=== PATIENT | female | born 1995 | race Caucasian/White ===

== ENCOUNTER 2023-03-28 09:44 | Emergency (ER) | payer OTHER, SELFPAY ==
[2023-03-28 09:48] VITALS: BP 148/76; PULSE 94; RESP 18; TEMP 36.4; O2SAT 100; BMI 30.5
--- NOTE | 2023-03-28 10:00 | XR_ITS ---
The [address] [address] Patient Name: LENY KEN MRN: [id number] date: 1995 Sex: F Assigned Patient Location: ER Current Patient Location: ER Accession/Order Number: [id number] Exam Date: 03/28/2023 10:10 Report Date: 03/28/2023 10:51 At the request of: JULES MARY Procedure: XR knee LT 4V EXAM: XR knee LT 4V - 03/28/2023. HISTORY: fall, left knee pain COMPARISON: None. FINDINGS: AP, lateral, oblique and sunrise diffuse for 4 views obtained. XR/XR knee LT 4V IMPRESSION: 1. No acute fracture or dislocation. 2. Small volume of joint fluid suspected within the suprapatellar bursa. There may be mild narrowing of the medial joint compartment. There is no chondrocalcinosis or radiopaque foreign body. 3. Mild hypertrophic osseous change at the anterior tibial tubercle at insertion site of the infrapatellar ligament related to remote trauma versus developmental variant. Electronically authenticated by: SONNY WEBB Date: 03/28/2023 10:51
--- NOTE | 2023-03-28 10:00 | ED_ITS ---
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 She leaned forward to try and catch it and landed onto the floor on bent knees, with the knees striking the tiled floor. This occurred yesterday. Since then she has experienced pain and a popping sensation with movement of the left knee. No prior knee injury or procedures/surgeries. She took OTC pain meds at home. Related Data Home Medications Medication Instructions Recorded Confirmed dextroamphetamine-amphetamine 20 20 mg PO TID 03/28/23 03/28/23 mg tablet insulin glargine 100 unit/mL 27 unit subcut DAILY 03/28/23 03/28/23 subcutaneous solution norethindrone 1 mg-ethinyl 1 tab PO DAILY 03/28/23 03/28/23 estradiol 20 mcg (21)-iron 75 mg (7) tablet Allergies Allergy/AdvReac Type Severity Reaction Status Date / Time No Known Drug Allergies Allergy Verified 03/28/23 09:48 PFSH [facility] Social History Smoking status: Never smoker Exam Narrative Exam Narrative: Nurses notes and vital signs reviewed and patient is not hypoxic. afebrile General: Well-appearing and in no apparent distress. Skin: Warm, dry, no pallor noted. No rash. Cardiovascular: Normal peripheral perfusion. Respiratory: No accessory muscle use or respiratory distress. Musculoskeletal: No evidence of deformity to the R & L knee. The patient has tenderness to the inferior patellar aspect of the left knee and some pain with patellar manipulation. Palpable click with passive and active left knee move ment. There is no left knee swelling, no ecchymosis, no erythema or warmth noted. DP and PT pulses are intact 2+. Normal sensation, no cyanosis or mottling noted. The patient has no laxity with varus or valgus stressing. The patient has negative anterior drawer and Rachel testing. The patient was able to flex and extend the left knee. Patient was able to extend leg off the cart without difficulty. No tenderness noted to the proximal fibular area. The achilles tendon is intact. The patient has no shortening or rotation noted to the bilateral lower extremities. Neurological: alert and orient x4, normal sensory and motor observed. Psychiatric: Cooperative Constitutional Vital Signs, click to edit/add: Last Vital Signs Temp 97.6 F 03/28/23 09:48 Pulse 94 H 03/28/23 09:48 Resp 18 03/28/23 09:48 BP 148/76 H 03/28/23 09:48 Pulse Ox 100 03/28/23 09:48 O2 Del Method Room Air 03/28/23 09:48 Course Vital Signs Vital signs: Vital Signs Temperature 97.6 F 03/28/23 09:48 Pulse Rate 94 H 03/28/23 09:48 Respiratory Rate 18 03/28/23 09:48 Blood Pressure 148/76 H 03/28/23 09:48 Pulse Oximetry 100 03/28/23 09:48 Oxygen Delivery Method Room Air 03/28/23 09:48 Temperature 97.6 F 03/28/23 09:48 Pulse Rate 94 H 03/28/23 09:48 Respiratory Rate 18 03/28/23 09:48 Blood Pressure 148/76 H 03/28/23 09:48 Pulse Oximetry 100 03/28/23 09:48 Oxygen Delivery Method Room Air 03/28/23 09:48 MDM - Extremity Injury (Lower) MDM Narrative Medical decision making narrative: xrays L knee = no fracture or dislocation, small amount of suprapatellar bursal fluid. Patient and I discussed her xrays and what might be causing the click in the knee. This is work related so she will start with occupational health for follow up. They can decide on any additional referrals necessary if her symptoms persist. Recommended OTC meds for pain. Imaging Data xr knee: Radiologist's impression: XR/XR knee LT 4V IMPRESSION: 1. No acute fracture or dislocation. 2. Small volume of joint fluid suspected within the suprapatellar bursa. There may be mild narrowing of the medial joint compartment. There is no chondrocalcinosis or radiopaque foreign body. 3. Mild hypertrophic osseous change at the anterior tibial tubercle at insertion site of the infrapatellar ligament related to remote trauma versus developmental variant. Electronically authenticated by: SONNY WEBB Date: 03/28/2023 10:39 Dictated By: Jude Price M.D. Discharge Plan Discharge Chief Complaint: Extremity Injury, Lower Clinical Impression: Acute pain of left knee Patient Disposition: Home, Self-Care Time of Disposition Decision: 10:46 Prescriptions / Home Meds: No Action dextroamphetamine-amphetamine 20 mg tablet 20 mg PO TID insulin glargine 100 unit/mL solution 27 unit SUBCUT DAILY norethindrone-e.estradiol-iron 1 mg-20 mcg (21)/75 mg (7) tablet 1 tab PO DAILY Instructions: Knee Pain (ED) Stand Alone Forms: Portal Instructions Referrals: [facility] - As soon as possible Discharge Date/Time: 03/28/23 11:08
[2023-03-28 11:05] VITALS: PULSE 78; RESP 16; O2SAT 98
== END 2023-03-28 11:08 | disposition home or self-care (01) ==
PROVIDERS: Emergency Provider Emergency Medicine
DX: S80.02XA Contusion of left knee, initial encounter (principal); M25.562 Pain in left knee; W18.39XA Other fall on same level, initial encounter
CPT/HCPCS: 73564; 99283

== ENCOUNTER 2023-07-24 06:46 | Outpatient (OUT) | payer SELFPAY ==
--- OUTSIDE RECORDS SUMMARY | 2023-07-24 06:49 | XMS_ITS | CCD ---
Author Name Unknown Address [address] [place] [address] Organization [facility] Care Team Providers Care Printing Sign 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 Name Role Phone Stevie SWIFT, Perri Primary Care Provider [phone] MILAGROS LOCKE Admitting Unavailable MILAGROS LOCKE Attending Unavailable [facility], DR GRIGSBY Primary Care Unavailable RICK ., DIANNE BENNETT Consulting Unavailabl e Stevie SWIFT, [facility] Primary Care Provider STEVIE, PERRI Attending Unavailable STEVIE, PERRI Primary Care Unavailable IVAN FERRERA Attending Unavailable STEVIE, PERRI Referring Unavailable STEVIE, PERRI Primary Care Unavailable STEVIE, PERRI Referring Unavailable STEVIE, PERRI Primary Care Unavailable STEVIE, PERRI Attending Unavailable STEVIE, PERRI Primary Care Unavailable STEVIE, PERRI Attending Unavailable STEVIE, PERRI Primary Care Unavailable STEVIE, PERRI Attending Unavailable STEVIE, PERRI Primary Care Unavailable SHERRY CEBALLOS Attending Unavailable STEVIE, PERRI Primary Care Unavailable STEVIE, PERRI Referring Unavailable STEVIE, PERRI Primary Care Unavailable STEVIE, PERRI Referring Unavailable STEVIE, PERRI Primary Care Unavailable STEVIE, PERRI Attending Unavailable STEVIE, PERRI Primary Care Unavailable Medications Current Medications Medication Drug Class(es) Dates Sig (Normalized) Sig (Original) amphetamine aspartate 5 mg / amphetamine sulfate 5 mg / dextroamphetamine saccharate 5 mg / dextroamphetamine sulfate 5 mg oral tablet (20 sources) Central Nervous System Stimulant Start: 02-20-2023 End: 08-19-2023 dextroamphetamine-a mphetamine (ADDERALL) 20 mg tablet Indications: Attention deficit hyperactivity disorder (ADHD), combined type Take 1 tablet by mouth three times a day for 30 days. Do not start before July 20, 2023. 90 tablet 0 07/20/2023 08/19/2023 Active Start: 08-21-2022 End: 01-02-2023 take 1.5 tablets by mouth three times daily dextroamphetamine-amphetamine (ADDERALL) 20 mg tablet Indications: Attention deficit hyperactivity disorder (ADHD), combined type Take 1.5 tablets by mouth three times daily for 30 days. Do not start before December 03, 2022. 135 tablet 0 12/03/2022 Active Start: 06-10-2022 End: 10-20-2022 take 1 tablet by mouth three times daily dextroamphetamine-amphetamine (ADDERALL) 20 mg tablet Indications: Attention deficit hyperactivity disorder (ADHD), combined type Take 1 tablet by mouth three times daily for 30 days. 90 tablet 0 07/22/2022 Active Start: 12-24-2021 End: 07-10-2022 take 1 tablet by mouth in the morning dextroamphetamine-amphetamine (ADDERALL) 20 mg tablet Indications: Attention deficit hyperactivity disorder (ADHD), combined type Take 1 1/2 tablets by mouth in the morning; take 1 tablet by mouth in the afternoon. 75 tablet 0 06/10/2022 Active Start: 09-23-2021 End: 12-24-2021 dextroamphetamine-amphetamin e (ADDERALL) 10 mg tablet Indications: Attention deficit hyperactivity disorder (ADHD), combined type Take 1 tablet by mouth once daily for 30 days. Do not start before November 23, 2021. 30 tablet 0 11/23/2021 12/24/2021 Discontinued Start: 09-23-2021 End: 07-05-2022 take 1 tablet by mouth once daily Amphetamine-Dextroamphetamine (ADDERALL) 30 mg tablet Indications: Attention deficit hyperactivity disorder (ADHD), combined type Take 1 tablet by mouth once daily for 30 days. 30 tablet 0 04/01/2022 Active Start: 09-10-2021 End: 09-23-2021 take 1 tablet by mouth twice daily dextroamphetamine-amphetamine (ADDERALL) 10 mg tablet Indications: Attention deficit hyperactivity disorder (ADHD), combined type Take 1 tablet by mouth twice daily for 14 days. 28 tablet 0 09/10/2021 09/23/2021 Discontinued Comment on above: Take 1 tablet by donn th once daily for 30 days. Take 1 tablet by donn th twice daily for 14 days. Take 1 tablet by donn th once daily for 30 days. Do not start before November 23, 2021. Take 1 tablet by donn th once daily for 30 days. Do not start before February 22, 2022. Take 1 tablet by donn th once daily for 30 days. Do not start before January 23, 2022. Take 1 tablet by donn th once daily for 30 days. Do not start before May 31, 2022. Take 1 tablet by donn th once daily for 30 days. Do not start before May 01, 2022. Take 1 1/2 tablets b y mouth in the morning; take 1 tablet by mouth in the afternoon. Take 1 tablet by donn th three times daily for 30 days. Do not start before September 20, 2022. Take 1.5 tablets by mouth three times daily for 30 days. Do not start before August 21, 2022. Take 1 tablet by donn th three times daily for 30 days. Take 1.5 tablets by mouth three times daily for 30 days. Do not start before December 03, 2022. Take 1 tablet by donn th three times a day for 30 days. Do not start before March 22, 2023. Take 1 tablet by donn th three times a day for 30 days. Do not start before April 21, 2023. Take 1 tablet by donn th three times a day for 30 days. Take 1 tablet by donn th three times a day for 30 days. Do not start before July 20, 2023. Take 1 tablet by donn th three times a day for 30 days. Do not start before June 20, 2023. levoFLOXacin 500 mg oral tablet (2 sources) Quinolone Antimicrobial Start: 07-25-19 End: 08-01-19 take 1 tablet by mouth once daily levoFLOXacin (LEVAQUIN) 500 mg tablet Indications: Perforation of right tympanic membrane Take 1 tablet by mouth once daily for 7 days. 7 tablet 0 07/24/2022 07/31/2022 Active Comment on above: Take 1 tablet by donn th once daily for 7 days. Completed/Discontinued Medications Medication Drug Class(es) Dates Sig (Normalized) Sig (Original) atorvastatin 20 mg oral tablet (19 sources) HMG-CoA Reductase Inhibitor Start: 08-06-2015 take 1 tablet by mouth once daily at bedtime atorvastatin (LIPITOR) 20 mg tablet Take 1 tablet by mouth daily at bedtime. 30 tablet 5 08/06/2015 Active Comment on above: Take 1 tablet by donn th daily at bedtime. Ethinyl Estradiol / Ferrous fumarate / Norethindrone (19 sources) Estrogen Start: 08-26-2018 take 1 tablet by mouth once Norethin Skinny-Eth Estrad-FE 1 mg-20 mcg (21)/75 mg (7) per tablet Take 1 tablet by mouth as directed. 0 08/26/2018 Active Comment on above: Take 1 tablet by donn th as directed. glucagon (rdna) 1 mg injection (19 sources) Antihypoglycemic Agent Start: 09-14-2014 glucagon, human recombinant, (GLUCAGON EMERGENCY KIT, HUMAN,) 1 mg injection Inject 1 mg intramuscularly as directed. For severe hypoglycemia 1 Each 1 09/14/2014 Active Comment on above: Inject 1 mg intramus cularly as directed. For severe hypoglycemia insulin glargine 100 unt/ml injectable solution (20 sources) Insulin Analog Start: 05-21-2023 insulin glargine (LANTUS U-100 INSULIN) 100 unit/mL injection Inject 27 units QHS and as directed 10 mL 3 05/21/2023 Active Start: 04-05-2015 End: 01-12-2023 insulin glargine (LANTUS U-1 00 INSULIN) 100 unit/mL injection Inject 27 units QHS and as directed 10 mL 3 01/12/2023 Active Comment on above: Inject 27 units QHS and as directed 3 ml insulin lispro 100 unt/ml pen injector (20 sources) Insulin Analog Start: 05-21-2023 insulin lispro (HUMALOG KWIKPEN INSULIN) 100 unit/mL Indications: Uncontrolled type 2 diabetes mellitus with hyperglycemia (HCC) INJECT 1 UNIT PER 7 GRAMS OF CARBOHYDRATE, UP TO 40 UNITS DAILY 45 mL 3 05/21/2023 Active Start: 04-11-2016 End: 01-12-2023 insulin lispro (HUMALOG KWIK PEN INSULIN) 100 unit/mL INJECT 1 UNIT PER 7 GRAMS OF CARBOHYDRATE, UP TO 40 UNITS DAILY 45 mL 3 01/12/2023 Active Comment on above: INJECT 1 UNIT PER 7 GRAMS OF CARBOHYDRATE, UP TO 40 UNITS DAILY insulin needles, DISPOSABLE, (BD INSULIN PEN NEEDLE UF) 31 X 5/16 ndle (19 sources) Start: 09-14-2014 insulin needles, DISPOSABLE, (BD INSULIN PEN NEEDLE UF) 31 X 5/16 ndle Injects 4 times per day 400 Each 4 09/14/2014 Active Comment on above: Injects 4 times per day Insulin Syringe-Needle U-100 1/2 mL 29 syrg (19 sources) Start: 04-05-2015 Insulin Syringe-Needle U-100 1/2 mL 29 syrg Injects once per day. 100 Syringe 2 04/05/2015 Active Comment on above: Injects once per day . Problems Active Problems Problem Classification Problem Date Documented Date Episodic/Chronic Attention-deficit, conduct, and disruptive behavior disorders (20 sources) Attention deficit hyperactivity disorder, combined type; Translations: [Attention-deficit hyperactivity disorder, combined type] Onset: 09-24-2021 Chronic Attention-deficit, conduct, and disruptive behavior disorders (1 source) Attention-deficit hyperactivity disorder, combined type; Translations: [Attention deficit hyperactivity disorder (ADHD), combined type] Onset: 09-24-2021 Chronic Coagulation and hemorrhagic disorders (14 sources) von Willebrand disorder; Translations: [Von Willebrand's disease] Onset: 04-29-2021 04-29-2021 Chronic Diabetes mellitus with complications (20 sources) Type 1 diabetes mellitus; Translations: [Type 1 diabetes mellitus, uncontrolled] Onset: 03-05-2006 09-13-2015 Chronic Disorders of lipid metabolism (20 sources) Mixed hyperlipidemia; Translations: [Mixed hyperlipidemia] Onset: 04-29-2021 04-29-2021 Chronic E Codes: Cut/pierceb (1 source) Contact with other sharp object(s), not elsewhere classified, initial encounter; Translations: [[facility] SH[facility] OB NOT ELSW CLASS INI] Onset: 07-31-2022 Episodic Immunizations and screening for infectious disease (1 source) Viral screening status; Translations: [Encounter for screening for other viral diseases] Episodic Menstrual disorders (19 sources) Dysmenorrhea; Translations: [Dysmenorrhea, unspecified] Onset: 04-29-2021 04-29-2021 Chronic Neoplasms of unspecified nature or uncertain behavior (1 source) Thrombocytosis; Translations: [Thrombocytosis] Episodic Nutritional deficiencies (20 sources) Vitamin D deficiency; Translations: [Vitamin D deficiency, unspecified] Onset: 12-04-2011 12-04-2011 Chronic Open wounds of extremities (1 source) Laceration of left index finger; Translations: [Laceration without foreign body of left index finger without damage to nail, initial encounter] 07-16-2023 Episodic Open wounds of head; neck; and trunk (4 sources) Traumatic rupture of right ear drum, initial encounter; Translations: [TRAUMATIC RUPTURE RT EAR DRUM INIT] Onset: 07-29-2022 Episodic Other aftercare (2 sources) Patient encounter status; Translations: [Other care home (current) drug therapy] Episodic Other nervous system disorders (1 source) Carpal tunnel syndrome; Translations: [Carpal tunnel syndrome, bilateral upper limbs] Chronic Other nervous system disorders (1 source) Bilateral carpal tunnel syndrome; Translations: [Carpal tunnel syndrome, bilateral upper limbs] Chronic Other nervous system disorders (1 source) Carpal tunnel syndrome, bilateral upper limbs; Translations: [Bilateral carpal tunnel syndrome] Onset: 05-21-2023 Chronic Other nervous system disorders (2 sources) Paresthesia of upper limb; Translations: [Anesthesia of skin] Episodic Other nervous system disorders (1 source) Skin sensation disturbance; Translations: [Other disturbances of skin sensation] Episodic Otitis media and related conditions (1 source) Perforation of right tympanic membrane; Translations: [Unspecified perforation of tympanic membrane, right ear] Episodic Past or Other Problems Problem Classification Problem Date Documented Da te Episodic/Chronic Diabetes mellitus without complication (19 sources) Hyperglycemia; Translations: [Hyperglycemia, unspecified] Onset: 01-29-2012 Episodic Results Test Name Value Interpretation Reference Range Facility [facility] 07-16-2023 CNOV Office Visit (EXPLOR ) LENY KEN ([id number]) 1995 F Date Time Provider Department 07/16/23 2:05 PM SHERRY CEBALLOS During your visit today, we recorded the following information about you: Temperature Pulse Respiration Blood pressure 97.9 degrees 91/minute 16/minute 125/84 Sherry Ceballos APRN.CLINICAL SUPERVISOR 07/16/2023 2:37 PM Signed This note was created using NoteWriter. Subjective Leny Ken is a 27 year old female. This 27 year old female presents to [facility] with flap cut, superficial to left index finger x 3 days, needs tetanus, started [employer] clain at work but has not been seen, pt is DM I. Pt is in NAD. Last tetanus 09/07/2015. The history is provided by the patient. Review of Systems Constitutional: Negative for activity change, appetite change, chills, diaphoresis, fatigue and fever. Respiratory: Negative for shortness of breath. Cardiovascular: Negative for chest pain. Gastrointestinal: Negative for abdominal pain, diarrhea, nausea and vomiting. Musculoskeletal: Negative for arthralgias, myalgias, neck pain and neck stiffness. Skin: Positive for wound. Left index finger, superficial flap cut, on chuck metal shelving, x 3 days ago Allergic/Immunologic: Positive for immunocompromised state. DM I Hematological: Does not bruise/bleed easily. Psychiatric/Behavioral : Negative. Objective BP 125/84 (BP Site: Right Arm, BP Position: Sitting, BP Cuff Size: Large Adult) Pulse 91 Temp 36.6 ?C (97.9 ?F) (Oral) Resp 16 LMP 08/05/2017 (Within Weeks) SpO2 100% PAST MEDICAL HISTORY Diagnosis Date Diabetes mellitus without mention of complication diagnosed 11/2005 Dysmenorrhea Eating disorder 02/25/2018 Binge eating Mixed hyperlipidemia Von Willebrand's disease (HCC) Current Outpatient Medications on File Prior to Visit Medication Sig dextroamphetamine-amph etamine (ADDERALL) 20 mg tablet Take 1 tablet by mouth three times a day for 30 days. [START ON 07/20/2023] dextroamphetamine-amph etamine (ADDERALL) 20 mg tablet Take 1 tablet by mouth three times a day for 30 days. Do not start before July 20, 2023. dextroamphetamine-amph etamine (ADDERALL) 20 mg tablet Take 1 tablet by mouth three times a day for 30 days. Do not start before June 20, 2023. insulin lispro (HUMALOG KWIKPEN INSULIN) 100 unit/mL INJECT 1 UNIT PER 7 GRAMS OF CARBOHYDRATE, UP TO 40 UNITS DAILY insulin glargine (LANTUS U-100 INSULIN) 100 unit/mL injection Inject 27 units QHS and as directed Norethin Skinny-Eth Estrad-FE 1 mg-20 mcg (21)/75 mg (7) per tablet Take 1 tablet by mouth as directed. atorvastatin (LIPITOR) 20 mg tablet Take 1 tablet by mouth daily at bedtime. Insulin Syringe-Needle U-100 1/2 mL 29 syrg Injects once per day. insulin needles, DISPOSABLE, (BD INSULIN PEN NEEDLE UF) 31 X 5/16 ndle Injects 4 times per day glucagon, human recombinant, (GLUCAGON EMERGENCY KIT, HUMAN,) 1 mg injection Inject 1 mg intramuscularly as directed. For severe hypoglycemia blood sugar diagnostic ([employer] ULTRA TEST) test strip Use as instructed. Tests 4 times per day No current facility-administered medications on file prior to visit. Physical Exam Vitals and nursing note reviewed. Constitutional: General: She is not in acute distress. Appearance: Normal appearance. She is not ill-appearing, toxic-appearing or diaphoretic. HENT: Head: Normocephalic and atraumatic. Cardiovascular: Rate and Rhythm: Normal rate. Pulmonary: Effort: Pulmonary effort is normal. Abdominal: Palpations: Abdomen is soft. Musculoskeletal: General: Normal range of motion. Skin: General: Skin is warm. Capillary Refill: Capillary refill takes less than 2 seconds. Findings: No erythema. Comments: Left index finger flap laceration, clean, no appreciated infection, no bleeding or discharge, minimal swelling Neurological: Mental Status: She is alert and oriented to person, place, and time. Psychiatric: Mood and Affect: Mood normal. Behavior: Behavior normal. ASSESSMENT/PLAN: 1. Laceration of index finger of left hand without complication, initial encounter - ICD9: 883.0, ICD10: S61.211A Tdap updated- 8 years out, chuck shelf is mechanism of injury Wash with dial Cover when out and open when home Follow up with [facility] provider as needed or to close case - TDAP VACCINE, AGE 7+ YR (ADACEL, BOOSTRIX) SUZE Pleitez Margaret H, APRN.CNP 07/16/2023 2:37 PM Signed ASSESSMENT/PLAN: 1. Laceration of index finger of left hand without complication, initial encounter - ICD9: 883.0, ICD10: S61.211A Tdap updated- 8 years out, chuck shelf is mechanism of injury Wash with dial Cover when out and open when home Follow up with [facility] provider as needed or to close case - TDAP VACCINE, AGE 7+ YR (ADACEL, BOOSTRIX) Sherry Ceballos, TIM.CLINICAL SUPERVISOR Allergies As of Date: 02 (more content not included)... Normal [facility] ALBUMIN/CREAT RATIO RND URon 05-21-2023 Albumin DL <= 20 mg/L (U) [Mass/Vol] mg/dL Normal 0.0-20.0 [facility] Comment on above: Order Comment: Speci men Type: URINE SPECIMENOrdering Facility: [facility] Address: [address] [place] [address] Performed By: #### U ACR ####[facility] LABIA [id number] [address] [place] Albumin/Creatinine (U) [Mass ratio] Normal [facility] Comment on above: Order Comment: Speci men Type: URINE SPECIMENOrdering Facility: [facility] Address: [address] [place] [address] Result Comment: Not calculated Adult Male and Female Nephrotic Criteria: <30 mg/g is considered normal to mildly increased 30-300 mg/g is considered moderately increased >300 mg/g is considered severely increased KDIGO. (2013). KDIGO 2012 Clinical Practice Guideline for the Evaluation and Management of Chronic Kidney Disease. Official Journal of the International Society of Nephrology, 3(1), 1-150. Performed By: #### U ACR ####[facility] LABIA [id number] [place] [id number] [place] Creatinine (U) [Mass/Vol] 14.0 mg/dL Low 20.0-300.0 [facility] Comment on above: Order Comment: Speci men Type: URINE SPECIMENOrdering Facility: [facility] Address: [address] [place] [address] Performed By: #### U ACR ####[facility] LABIA [id number] [place] [id number] [facility] [place] CNOVon 05-21-2023 CNOV Office Visit [facility] LENY KEN ([id number]) 1995 F Date Time Provider Department 05/21/23 1:00 PM PERRI KRAUS [facility] During your visit today, we recorded the following information about you: Pulse Respiration Blood pressure Weight 111/minute 20/minute 129/85 70.2 kg Height 1.626 m Perri Kraus MD 05/22/2023 7:39 AM Signed Subjective HPI Patient here for follow-up, complaining of persistent discomfort in her wrists as well as into her hands bilaterally. Had an EMG done that showed positive, moderate carpal tunnel bilaterally. Has not had lab to exclude secondary causes. Will do that now she is of course diabetic, type I, control has been quite good over the last few months. If the labs are unremarkable we will probably recommend she go see orthopedics Additionally attention deficit, well-controlled without any major issues or problems, compliant with regimen of care. Review of Systems Respiratory: Negative for cough, hemoptysis and sputum production. Cardiovascular: Negative for chest pain, palpitations and orthopnea. Objective Physical Exam Cardiovascular: Rate and Rhythm: Normal rate and regular rhythm. Pulses: Normal pulses. Heart sounds: Normal heart sounds. Pulmonary: Effort: Pulmonary effort is normal. Breath sounds: Normal breath sounds. ASSESSMENT/PLAN: 1. Attention deficit hyperactivity disorder (ADHD), combined type - ICD9: 314.01, ICD10: F90.2 (primary diagnosis) - DEXTROAMPHETAMINE-AMPH ETAMINE 20 MG TABLET - DEXTROAMPHETAMINE-AMPH ETAMINE 20 MG TABLET - DEXTROAMPHETAMINE-AMPH ETAMINE 20 MG TABLET 2. Bilateral carpal tunnel syndrome - ICD9: 354.0, ICD10: G56.03 - CELINA BLOOD - C-REACTIVE PROTEIN (CRP) - FOLATE SERUM - RHEUMATOID FACTOR BL - VITAMIN B12 BLOOD - TSH BLD - SED RATE WESTERGREN - XR HAND 2V PA/LAT BILATERAL 3. Uncontrolled type 2 diabetes mellitus with hyperglycemia (HCC) - ICD9: 250.02, ICD10: E11.65 - ALBUMIN/CREAT RATIO RND UR - HGB A1C - INSULIN LISPRO (U-100) 100 UNIT/ML SUBCUTANEOUS PEN MD Stevie Skaggs Rajendran, MD 05/22/2023 7:45 AM Signed Addended by: PERRI KRAUS on: 05/22/2023 07:45 AM Modules accepted: Orders Referring Provider: SELF [200] Allergies As of Date: 05/21/2023 (No Known Allergies) Date Reviewed: 05/21/2023 Reviewed by: Kiki Rodrigez MA - Fully Assessed Reason for Visit: F/U 3 Month [443] Carpal Tunnel [972] Primary Visit Diagnosis:Attention deficit hyperactivity disorder (ADHD), combined type [F90.2] Other Visit Diagnoses:Bilateral carpal tunnel syndrome [G56.03] Uncontrolled type 2 diabetes mellitus with hyperglycemia (HCC) [E11.65] Order(s):dextroampheta mine-amphetamine (ADDERALL) 20 mg tabletTake 1 tablet by mouth three times a day for 30 days.Disp: 90 tabletRfl: 0 [START ON 07/20/2023] dextroamphetamine-amph etamine (ADDERALL) 20 mg tabletTake 1 tablet by mouth three times a day for 30 days. Do not start before July 20, 2023.Disp: 90 tabletRfl: 0 [START ON 06/20/2023] dextroamphetamine-amph etamine (ADDERALL) 20 mg tabletTake 1 tablet by mouth three times a day for 30 days. Do not start before June 20, 2023.Disp: 90 tabletRfl: 0 ALBUMIN/CREAT RATIO RND UR [SQUACR] Order #: [id number] FUTURE HGB A1C [ATDBS0J] Order #: [id number] FUTURE insulin lispro (HUMALOG KWIKPEN INSULIN) 100 unit/mLINJECT 1 UNIT PER 7 GRAMS OF CARBOHYDRATE, UP TO 40 UNITS DAILYDisp: 45 mLRfl: 3 insulin glargine (LANTUS U-100 INSULIN) 100 unit/mL injectionInject 27 units QHS and as directedDisp: 10 mLRfl: 3 CELINA BLOOD [SQANAS] Order #: [id number] FUTURE C-REACTIVE PROTEIN (CRP) [SQCRP] Order #: [id number] FUTURE FOLATE SERUM [SQSERFOL] Order #: [id number] FUTURE RHEUMATOID FACTOR BL [SQRF] Order #: [id number] FUTURE VITAMIN B12 BLOOD [SQB12] Order #: [id number] FUTURE TSH BLD [SQTSH] Order #: [id number] FUTURE SED RATE WESTERGREN [SQWSR] Order #: [id number] FUTURE XR HAND 2V PA/LAT BILATERAL [1305274] Order #: [id number] FUTURE XR WRIST GENERAL 3V PA/LAT/OBL BILATERAL [3607676] Order #: [id number] FUTURE CONSULT PANEL TO ORTHOPAEDICS [606637] Order #: [id number]: 1 FUTURE Prescriptions as of 05/22/2023 - dextroamphetamine-amph etamine (ADDERALL) 20 mg tablet Take 1 tablet by mouth three times a day for 30 days. - dextroamphetamine-amph etamine (ADDERALL) 20 mg tablet Take 1 tablet by mouth three times a day for 30 days. Do not start before July 20, 2023. - dextroamphetamine-amph etamine (ADDERALL) 20 mg tablet Take 1 tablet by mouth three times a day for 30 days. Do not start before June 20, 2023. - insulin lispro (HUMALOG KWIKPEN INSULIN) 100 unit/mL INJECT 1 UNIT PER 7 GRAMS OF CARBOHYDRATE, UP TO 40 UNITS DAILY - insulin glargine (LANTUS U-100 INSULIN) 100 unit/mL injection Inject 27 units QHS and as directed - Norethin Skinny-Eth Estrad-FE 1 mg-20 mcg (21)/75 (more content not included)... Normal [facility] CRP SerPl-mCncon 05-21-2023 CRP [Mass/Vol] 0.2 mg/dL Normal <0.9 [facility] Comment on above: Order Comment: Speci men Type: BLOOD SPECIMENOrdering Facility: [facility] Address: [address] [place] [address] Performed By: #### 1 [id number] ####[facility] LABCLIA [id number] [place] [address] [place] ESR Westergren method (Bld) [Velocity]on 05-21-2023 ESR (Bld) [Velocity] 2 mm/h Normal 0-20 [facility] Comment on above: Order Comment: Speci men Type: BLOOD SPECIMENOrdering Facility: [facility] Address: [address] [place] [address] Performed By: #### 4 [id number] ####[facility] LABCLIA [id number] [place] [address] [place] Folate SerPl-mCncon 05-21-19 24 Folate [Mass/Vol] ng/mL Normal >4.7 [facility] Comment on above: Order Comment: Speci men Type: BLOOD SPECIMENOrdering Facility: [facility] Address: [address] [place] [address] Result Comment: A re sult of > 20 ng/mL is not necessarily indicative of a pathologic or treatable condition: it reflects a limitation of the test methodology. Assay reference range: 4.8 to 24.2 ng/mL. Suitable for detection of folate deficiency. Reference: Folate III (Folate III) [package insert V 1.0 Estonian]. [facility], [place], [place]: March 2015. Performed By: #### 2 132-9, 3016-3, 2284-8, 59394-1 ####[facility] LABCLIA [id number] [place] [address] [place] HbA1c (Bld)on 05-21-2023 Average glucose Estimated from glycated hemoglobin (Bld) [Mass/Vol] 163 mg/dL Normal [facility] Comment on above: Order Comment: Speci men Type: BLOOD SPECIMENOrdering Facility: [facility] Address: [address] [place] [address] Result Comment: eAG: (Estimated average glucose) is a calculated value from HgbA1c and is sales representative metals of the average blood glucose level in the last 2-3 month period. Performed By: #### 5 5454-3 ####[facility] LABCLIA [id number] [place] [address] [place] HbA1c (Bld) [Mass fraction] 7.3 % High 4.3-5.6 [facility] Comment on above: Order Comment: Israel harley Type: BLOOD SPECIMENOrdering Facility: [facility] Address: [address] [place] [address] Result Comment: Amer ican Diabetes Association guidelines indicate that patients with HgbA1c in the range 5.7-6.4% are at increased risk for development of diabetes, and intervention by lifestyle modification may be beneficial. HgbA1c greater or equal to 6.5% is considered diagnostic of diabetes. Performed By: #### 5 5454-3 ####[facility] LABCLIA [id number] [place] [id number] [place] Nuclear Ab IA Ql (S)on 05-21 CELINA SCR QUAL Negative Normal Negative [facility] Comment on above: Order Comment: Israel harley Type: BLOOD SPECIMENOrdering Facility: [facility] Address: [address] [place] [address] Result Comment: The qualitative antinuclear antibody screen test performed using the following antigens: dsDNA, Chromatin, Ribosomal P, SS-A 60, SS-A 52, SS-B, Sm, SmRNP, NUTRITIONAL SERVICES DIRECTOR A, NUTRITIONAL SERVICES DIRECTOR 68, Scl-70, Norma-1, and Centromere B. Methodology: Multiplex flow immunoassay. Performed By: #### 4 7383-5 ####[facility] LABIA [id number] [place] [address] [place] Rheumatoid fact SerPl-aCncon 05-21-2023 Rheumatoid factor Qn [IU]/mL Normal <16 [facility] Comment on above: Order Comment: Israel cricket Type: BLOOD SPECIMENOrdering Facility: [facility] Address: [address] [place] [address] Performed By: #### 2 132-9, 3016-3, 2284-8, 08540-9 ####[facility] LABIA [id number] [place] [address] [place] TSH SerPl-aCncon 05-21-2023 TSH Qn 0.987 m[IU]/L Normal 0.270-4.200 [facility] Comment on above: Order Comment: Speci men Type: BLOOD SPECIMENOrdering Facility: [facility] Address: [address] [place] [address] Result Comment: If t he patient is , TSH reference range varies by gestational period: First Trimester (weeks 9-12): 0.180-2.990 mIU/L Second Trimester: 0.110-3.980 mIU/L Third Trimester: 0.480-4.710 mIU/L Josef Griffin et al. A Practical Approach for the Verifications and Determination of Site- and Trimester-Specific Reference Intervals for Thyroid Function tests in . Thyroid, 2019:29:3:412-420. Denny Hilliard, et al. 2017 Guidelines of the [place] Thyroid Association for the Diagnosis and Management of Thyroid Disease during and the . Thyroid, 2017:27:3:315-389. Performed By: #### 2 132-9, 3016-3, 2284-8, 60478-8 ####[facility] LABIA [id number] [place] [address] [place] Vit B12 SerPl-mCncon 024 Cobalamin (Vitamin B12) [Mass/Vol] 357 pg/mL Normal 232-1245 [facility] Comment on above: Order Comment: Speci men Type: BLOOD SPECIMENOrdering Facility: [facility] Address: [address] [place] [address] Performed By: #### 2 132-9, 3016-3, 2284-8, 66509-1 ####[facility] LABIA [id number] [place] [address] [place] XR HAND 2V PA/LAT BILon XR HAND 2V PA/LAT JERRY * * *Final Report* * * DATE OF EXAM: May 21 2023 2:06PM LNX 5625 - XR HAND 2V PA/LAT JERRY / PROCEDURE REASON: Bilateral carpal tunnel syndrome * * * * Physician Interpretation * * * * HAND RADIOGRAPHS - BILATERAL HISTORY: Bilateral carpal tunnel syndrome TECHNOLOGIST PROVIDED HISTORY (if applicable): pain and stiffness jerry hands TECHNIQUE: XR HAND 2V PA/LAT JERRY COMPARISON: None available RESULT: Bone mineralization appears normal. Right hand: There are no visualized articular erosions in the right hand. No focal bony abnormality is identified. Joint spaces are preserved, and there is no soft tissue swelling. Left hand: There are no visualized articular erosions in the left hand. No focal bony abnormality is identified. Joint spaces are preserved, and there is no soft tissue swelling. IMPRESSION: 1. Negative radiographs of the bilateral hands [employer] Specialist: PSCB Transcribe Date/Time: May 22 2023 8:12A Dictated by : LEONIE CARDENAS MD This examination was interpreted and the report reviewed and electronically signed by: LEONIE CARDENAS MD on May 22 2023 8:13AM EST [id number] Normal [facility] 02-26-2023 [facility] Telephone ([facility]) LENY KEN ([id number]) 1995 F Date Time Provider Department 02/26/23 STEVIE PERRI [facility] During your visit today, we recorded the following information about you: Elizabeth Montero RN 02/26/2023 8:11 AM Signed Pt received paper scripts for her Adderall. She is out of town until Thursday in [place] and brought the scripts to [facility] in [place]. They have the script but are asking it be electronically sent since this is not her typical pharmacy. [facility] [address] [facility] Order placed AND pharmacy updated for review. Kiki Rodrigez MA 02/26/2023 9:47 AM Signed Left message advising patient that script has been sent to new pharmacy as requested. Kiki Rodrigez MA Allergies As of Date: 02/26/2023 (No Known Allergies) Date Reviewed: 10/07/2022 Reviewed by: Ivan Ferrera MD - Fully Assessed Reason for Visit: Medication Problem [65] Visit Diagnosis:Attention deficit hyperactivity disorder (ADHD), combined type [F90.2] Order(s):dextroampheta mine-amphetamine (ADDERALL) 20 mg tabletTake 1 tablet by mouth three times a day for 30 days.Disp: 90 tabletRfl: 0 Prescriptions as of 02/26/2023 - atorvastatin (LIPITOR) 20 mg tablet Take 1 tablet by mouth daily at bedtime. - blood sugar diagnostic ([employer] (SCNL)UCH ULTRA TEST) test strip Use as instructed. Tests 4 times per day - dextroamphetamine-amph etamine (ADDERALL) 20 mg tablet Take 1 tablet by mouth three times a day for 30 days. Do not start before March 22, 2023. - dextroamphetamine-amph etamine (ADDERALL) 20 mg tablet Take 1 tablet by mouth three times a day for 30 days. Do not start before April 21, 2023. - dextroamphetamine-amph etamine (ADDERALL) 20 mg tablet Take 1 tablet by mouth three times a day for 30 days. - glucagon, human recombinant, (GLUCAGON EMERGENCY KIT, HUMAN,) 1 mg injection Inject 1 mg intramuscularly as directed. For severe hypoglycemia - insulin glargine (LANTUS U-100 INSULIN) 100 unit/mL injection Inject 27 units QHS and as directed - insulin lispro (HUMALOG KWIKPEN INSULIN) 100 unit/mL INJECT 1 UNIT PER 7 GRAMS OF CARBOHYDRATE, UP TO 40 UNITS DAILY - insulin needles, DISPOSABLE, (BD INSULIN PEN NEEDLE UF) 31 X 5/16 ndle Injects 4 times per day - Insulin Syringe-Needle U-100 1/2 mL 29 syrg Injects once per day. - Norethin Skinny-Eth Estrad-FE 1 mg-20 mcg (21)/75 mg (7) per tablet Take 1 tablet by mouth as directed. Problem List As Of Date 02/26/2023 Noted Resolved Type 1 diabetes mellitus, uncontrolled (HCC) [I*03/05/2006 Anxiety [F41.9] 12/01/2011 04/29/2021 Vitamin D deficiency [E55.9] 12/04/2011 Hyperglycemia without ketosis [R73.9] 01/29/2012 Depressive disorder, not elsewhere classified [*02/18/2012 04/29/2021 Psychic factors associated with diseases classi*02/18/2012 04/29/2021 PERONEAL TENDINITIS [M77.50] 12/27/2013 04/29/2021 PAIN IN LIMB/ANKLE/FOOT [M79.609] 12/27/2013 04/29/2021 DKA, type 1 (HCC) [E10.10] 04/30/2014 Chest pain of uncertain etiology [R07.9] 04/30/2014 04/29/2021 DKA (diabetic ketoacidoses) (HCC) [E11.10] 04/30/2014 Eating disorder [F50.9] 02/25/2018 04/29/2021 Hypercholesterolemia [E78.00] 05/12/2016 04/29/2021 Von Willebrand's disease (HCC) [D68.00] 04/29/2021 08/13/2022 Mixed hyperlipidemia [E78.2] 04/29/2021 Dysmenorrhea [N94.6] 04/29/2021 Attention deficit hyperactivity disorder (ADHD)*09/24/2021 Prescriptions ordered this encounter Disp Refills Start End DEXTROAMPHETAMINE-AMPH ETAMINE 20 MG * 90 t* 0 02/26/2023 03/28/2023 Route: ORAL Sig: Take 1 tablet by mouth three times a day for 30 days. Medications Discontinued During This Encounter Prescriptions - dextroamphetamine-amph etamine (ADDERALL) 20 mg tablet (Discontinued) Take 1 tablet by mouth three times a day for 30 days. Encounter Status:Closed by ELIZABETH MONTERO on 02/26/23 [facility] CNOVregan 02-20-2023 CNOV Office Visit ([facility] ) LENY KEN ([id number]) 1995 F Date Time Provider Department 02/20/23 8:00 AM PERRI KRAUS [facility] During your visit today, we recorded the following information about you: Perri Kraus MD 02/23/2023 7:34 AM Signed Subjective [facility] Follow-up for attention deficit disorder, doing very well without major issues or problems, medications are relatively effective, no side effects reported. Additionally in regards to her diabetes she feels that since she is monitoring with a continuous glucose monitor it has gotten much better Review of Systems Respiratory: Negative for cough, hemoptysis and sputum production. Cardiovascular: Negative for chest pain, palpitations and orthopnea. Objective Physical Exam Cardiovascular: Rate and Rhythm: Normal rate and regular rhythm. Pulses: Normal pulses. Heart sounds: Normal heart sounds. Pulmonary: Effort: Pulmonary effort is normal. Breath sounds: Normal breath sounds. ASSESSMENT/PLAN: 1. Attention deficit hyperactivity disorder (ADHD), combined type - ICD9: 314.01, ICD10: F90.2 (primary diagnosis) - DEXTROAMPHETAMINE-AMPH ETAMINE 20 MG TABLET - DEXTROAMPHETAMINE-AMPH ETAMINE 20 MG TABLET - DEXTROAMPHETAMINE-AMPH ETAMINE 20 MG TABLET 2. Uncontrolled type 2 diabetes mellitus with hyperglycemia (HCC) - ICD9: 250.02, ICD10: E11.65 - Controlled - Continue current medications - HB A1C B/O Perri Kraus MD Referring Provider: SELF [200] Allergies As of Date: 02/20/2023 (No Known Allergies) Date Reviewed: 10/07/2022 Reviewed by: Ivan Ferrera MD - Fully Assessed Primary Visit Diagnosis:Attention deficit hyperactivity disorder (ADHD), combined type [F90.2] Other Visit Diagnosis:Uncontrolled type 2 diabetes mellitus with hyperglycemia (HCC) [E11.65] Order(s):HB A1C B/O [1755803] Order #: [id number] dextroamphetamine-amph etamine (ADDERALL) 20 mg tabletTake 1 tablet by mouth three times a day for 30 days.Disp: 90 tabletRfl: 0 [START ON 03/22/2023] dextroamphetamine-amph etamine (ADDERALL) 20 mg tabletTake 1 tablet by mouth three times a day for 30 days. Do not start before March 22, 2023.Disp: 90 tabletRfl: 0 [START ON 04/21/2023] dextroamphetamine-amph etamine (ADDERALL) 20 mg tabletTake 1 tablet by mouth three times a day for 30 days. Do not start before April 21, 2023.Disp: 90 tabletRfl: 0 Prescriptions as of 02/23/2023 - dextroamphetamine-amph etamine (ADDERALL) 20 mg tablet Take 1 tablet by mouth three times a day for 30 days. - dextroamphetamine-amph etamine (ADDERALL) 20 mg tablet Take 1 tablet by mouth three times a day for 30 days. Do not start before March 22, 2023. - dextroamphetamine-amph etamine (ADDERALL) 20 mg tablet Take 1 tablet by mouth three times a day for 30 days. Do not start before April 21, 2023. - insulin lispro (HUMALOG KWIKPEN INSULIN) 100 unit/mL INJECT 1 UNIT PER 7 GRAMS OF CARBOHYDRATE, UP TO 40 UNITS DAILY - insulin glargine (LANTUS U-100 INSULIN) 100 unit/mL injection Inject 27 units QHS and as directed - Norethin Skinny-Eth Estrad-FE 1 mg-20 mcg (21)/75 mg (7) per tablet Take 1 tablet by mouth as directed. - atorvastatin (LIPITOR) 20 mg tablet Take 1 tablet by mouth daily at bedtime. - Insulin Syringe-Needle U-100 1/2 mL 29 syrg Injects once per day. - insulin needles, DISPOSABLE, (BD INSULIN PEN NEEDLE UF) 31 X 5/16 ndle Injects 4 times per day - glucagon, human recombinant, (GLUCAGON EMERGENCY KIT, HUMAN,) 1 mg injection Inject 1 mg intramuscularly as directed. For severe hypoglycemia - blood sugar diagnostic (Mom[employer].meTOUCH ULTRA TEST) test strip Use as instructed. Tests 4 times per day Problem List As Of Date 02/20/2023 Noted Resolved Type 1 diabetes mellitus, uncontrolled (HCC) [I*03/05/2006 Anxiety [F41.9] 12/01/2011 04/29/2021 Vitamin D deficiency [E55.9] 12/04/2011 Hyperglycemia without ketosis [R73.9] 01/29/2012 Depressive disorder, not elsewhere classified [*02/18/2012 04/29/2021 Psychic factors associated with diseases classi*02/18/2012 04/29/2021 PERONEAL TENDINITIS [M77.50] 12/27/2013 04/29/2021 PAIN IN LIMB/ANKLE/FOOT [M79.609] 12/27/2013 04/29/2021 DKA, type 1 (HCC) [E10.10] 04/30/2014 Chest pain of uncertain etiology [R07.9] 04/30/2014 04/29/2021 DKA (diabetic ketoacidoses) (HCC) [E11.10] 04/30/2014 Eating disorder [F50.9] 02/25/2018 04/29/2021 Hypercholesterolemia [E78.00] 05/12/2016 04/29/2021 Von Willebrand's disease (HCC) [D68.00] 04/29/2021 08/13/2022 Mixed hyperlipidemia [E78.2] 04/29/2021 Dysmenorrhea [N94.6] 04/29/2021 Attention deficit hyperactivity disorder (ADHD)*09/24/2021 Prescriptions ordered this encounter Disp Refills Start End DEXTROAMPHETAMINE-AMPH ETAMINE 20 MG * 90 t* 0 02/20/2023 03/22/2023 Class: Print RX Route: ORAL Sig: Take 1 tablet by mouth three times a day for 30 days. DEXTROAMPHETAMINE-AMPH ETAMIN (more content not included)... Normal [facility] 12-24-2022 CNPN Telephone (4CQ) LENY KEN ([id number]) 1995 F Date Time Provider Department 12/24/22 MARY TORREZ 4CQ During your visit today, we recorded the following information about you: Ashely Clifton 12/24/2022 3:32 PM Signed Pharmacy is calling to verify the dosage on her adderall. Please call and clarify. [facility] in [place]. [phone]. Kiki Rodirgez MA 12/25/2022 7:30 AM Signed Please verify dosing. Most recent script has different dosage from past scripts. NAZARIO Yusuf Heather, BAILEY 12/26/2022 9:38 AM Signed Regarding: Adderall 20 mg prescription Sig: Take 1.5 tablets by mouth three times daily for 30 days. Do not start before December 03, 2022. Harvey, Pharmacist (Myranda) is calling stating that's the same one she is referring to and needs to clarify this Rx Her main question is when she checked OARS the dosing is kind of all over.. it's up and then down and then back up and she's wondering if this is what the Provider intended? The Pharmacist reports the pt herself didn't realize she was prescribed to take it more than once a day -- which is how the Pharmacist said it was being prescribed last month Please contact the pharmacy back with clarification, thanks [facility] line [phone] Mary Torrez APRN.STEFAN 12/26/2022 9:45 AM Signed This will have to wait until Thursday when Dr. Kraus returns for clarification. Mary Torrez APRN.Kiki Andrew MA 12/26/2022 1:13 PM Signed Left message informing pharmacy that provider is out until Thursday and script will be verified at that time. NAZARIO Yusuf Rajendran, MD 12/29/2022 7:18 AM Signed 20 mg tablets , 1 1/2 tabs 3 times a day So she will be able to get 30 mg dose 3 times a day Kiki Rodrigez MA 12/29/2022 11:54 AM Signed Left message confirming dosage as noted. Kiki Rodrigez MA Allergies As of Date: 12/24/2022 (No Known Allergies) Date Reviewed: 10/07/2022 Reviewed by: Ivan Ferrera MD - Fully Assessed Reason for Visit: Medication Problem [65] Prescriptions as of 12/29/2022 - dextroamphetamine-amph etamine (ADDERALL) 20 mg tablet Take 1.5 tablets by mouth three times daily for 30 days. Do not start before December 03, 2022. - dextroamphetamine-amph etamine (ADDERALL) 20 mg tablet Take 1 tablet by mouth three times daily for 30 days. Do not start before September 20, 2022. - dextroamphetamine-amph etamine (ADDERALL) 20 mg tablet Take 1 tablet by mouth three times daily for 30 days. - dextroamphetamine-amph etamine (ADDERALL) 20 mg tablet Take 1 1/2 tablets by mouth in the morning; take 1 tablet by mouth in the afternoon. - Amphetamine-Dextroamph etamine (ADDERALL) 30 mg tablet Take 1 tablet by mouth once daily for 30 days. Do not start before May 01, 2022. - Amphetamine-Dextroamph etamine (ADDERALL) 30 mg tablet Take 1 tablet by mouth once daily for 30 days. - Norethin Skinny-Eth Estrad-FE 1 mg-20 mcg (21)/75 mg (7) per tablet Take 1 tablet by mouth as directed. - HUMALOG KWIKPEN 100 unit/mL inpn INJECT 1 UNIT PER 7 GRAMS OF CARBOHYDRATE, UP TO 40 UNITS DAILY - atorvastatin (LIPITOR) 20 mg tablet Take 1 tablet by mouth daily at bedtime. - insulin glargine (LANTUS) 100 unit/mL injection Inject 27 units QHS and as directed - Insulin Syringe-Needle U-100 1/2 mL 29 syrg Injects once per day. - insulin needles, DISPOSABLE, (BD INSULIN PEN NEEDLE UF) 31 X 5/16 ndle Injects 4 times per day - glucagon, human recombinant, (GLUCAGON EMERGENCY KIT, HUMAN,) 1 mg injection Inject 1 mg intramuscularly as directed. For severe hypoglycemia - blood sugar diagnostic (Moments.meTOUCH ULTRA TEST) test strip Use as instructed. Tests 4 times per day Problem List As Of Date 12/24/2022 Noted Resolved Type 1 diabetes mellitus, uncontrolled (HCC) [I*03/05/2006 Anxiety [F41.9] 12/01/2011 04/29/2021 Vitamin D deficiency [E55.9] 12/04/2011 Hyperglycemia without ketosis [R73.9] 01/29/2012 Depressive disorder, not elsewhere classified [*02/18/2012 04/29/2021 Psychic factors associated with diseases classi*02/18/2012 04/29/2021 PERONEAL TENDINITIS [M77.50] 12/27/2013 04/29/2021 PAIN IN LIMB/ANKLE/FOOT [M79.609] 12/27/2013 04/29/2021 DKA, type 1 (HCC) [E10.10] 04/30/2014 Chest pain of uncertain etiology [R07.9] 04/30/2014 04/29/2021 DKA (diabetic ketoacidoses) (HCC) [E11.10] 04/30/2014 Eating disorder [F50.9] 02/25/2018 04/29/2021 Hypercholesterolemia [E78.00] 05/12/2016 04/29/2021 Von Willebrand's disease (HCC) [D68.00] 04/29/2021 08/13/2022 Mixed hyperlipidemia [E78.2] 04/29/2021 Dysmenorrhea [N94.6] 04/29/2021 Attention deficit hyperactivity disorder (ADHD)*09/24/2021 Encounter Status:Closed by KIKI RODRIGEZ on 12/29/22 [facility] CNOVon 10-07-2022 CNOV Office Visit (OTOLST ) LENY KEN ([id number]) 1995 F Date Time Provider Department 10/07/22 7:15 AM IVAN FERRERA OTWINSOME During your visit today, we recorded the following information about you: Ivan Ferrera MD 10/07/2022 8:04 AM Signed History: Leny Ken, a 27 year old female seen at request Dr. Perri Chambers, presents for evaluation of zip tie traumatized R ear 08/07 at work - (walking past a cage containing them). Pain, tunnel sound at time. No hearing change. Rx'd abx. Pain resolved but feels off . Denies dizziness, drainage, nasal congestion, runny-nose, post-nasal drip. No history of noise exposure. No history of ear infections. No history of ear surgery. No history of allergies. PAST MEDICAL HISTORY Diagnosis Date Diabetes mellitus without mention of complication diagnosed 11/2005 Dysmenorrhea Eating disorder 02/25/2018 Binge eating Mixed hyperlipidemia Von Willebrand's disease (HCC) PAST SURGICAL HISTORY Procedure Laterality Date NONE PE: Alert; oriented; well-developed; no apparent distress. Normal voice; normal communication. Ears: R: Small eschar post EAC. TM clear and mobile. L: EAC free of lesions. TM clear and mobile. Assessment/Plan: R ear trauma 08/07. Reasssured otologic exam wnl other than small eschar posterior EAC c/w EAC trauma. Rec audio. F/up at time of audio. CC: aleksandra Medical Decision Making: Problems: Low: Acute, uncomplicated illness or injury Risk: Low: Low risk from testing/treatment Medical Decision Making Level: 3 - Low Referring Provider: PERRI KRAUS [[id number]] Allergies As of Date: 10/07/2022 (No Known Allergies) Date Reviewed: 10/07/2022 Reviewed by: Ivan Ferrera MD - Fully Assessed Reason for Visit: New Patient [172] Ear Problem [38] Cmt: Injury to ear- zip-tie punctured ear drum. Primary Visit Diagnosis:Trauma of ear canal, initial encounter [S09.91XA] Prescriptions as of 10/07/2022 - dextroamphetamine-amph etamine (ADDERALL) 20 mg tablet Take 1 tablet by mouth three times daily for 30 days. Do not start before September 20, 2022. - dextroamphetamine-amph etamine (ADDERALL) 20 mg tablet Take 1.5 tablets by mouth three times daily for 30 days. Do not start before August 21, 2022. - dextroamphetamine-amph etamine (ADDERALL) 20 mg tablet Take 1 tablet by mouth three times daily for 30 days. - dextroamphetamine-amph etamine (ADDERALL) 20 mg tablet Take 1 1/2 tablets by mouth in the morning; take 1 tablet by mouth in the afternoon. - Amphetamine-Dextroamph etamine (ADDERALL) 30 mg tablet Take 1 tablet by mouth once daily for 30 days. Do not start before May 01, 2022. - Amphetamine-Dextroamph etamine (ADDERALL) 30 mg tablet Take 1 tablet by mouth once daily for 30 days. - Norethin Skinny-Eth Estrad-FE 1 mg-20 mcg (21)/75 mg (7) per tablet Take 1 tablet by mouth as directed. - HUMALOG KWIKPEN 100 unit/mL inpn INJECT 1 UNIT PER 7 GRAMS OF CARBOHYDRATE, UP TO 40 UNITS DAILY - atorvastatin (LIPITOR) 20 mg tablet Take 1 tablet by mouth daily at bedtime. - insulin glargine (LANTUS) 100 unit/mL injection Inject 27 units QHS and as directed - Insulin Syringe-Needle U-100 1/2 mL 29 syrg Injects once per day. - insulin needles, DISPOSABLE, (BD INSULIN PEN NEEDLE UF) 31 X 5/16 ndle Injects 4 times per day - glucagon, human recombinant, (GLUCAGON EMERGENCY KIT, HUMAN,) 1 mg injection Inject 1 mg intramuscularly as directed. For severe hypoglycemia - blood sugar diagnostic ([employer] (SCNL)UCH ULTRA TEST) test strip Use as instructed. Tests 4 times per day Problem List As Of Date 10/07/2022 Noted Resolved Type 1 diabetes mellitus, uncontrolled (HCC) [I*03/05/2006 Anxiety [F41.9] 12/01/2011 04/29/2021 Vitamin D deficiency [E55.9] 12/04/2011 Hyperglycemia without ketosis [R73.9] 01/29/2012 Depressive disorder, not elsewhere classified [*02/18/2012 04/29/2021 Psychic factors associated with diseases classi*02/18/2012 04/29/2021 PERONEAL TENDINITIS [M77.50] 12/27/2013 04/29/2021 PAIN IN LIMB/ANKLE/FOOT [M79.609] 12/27/2013 04/29/2021 DKA, type 1 (HCC) [E10.10] 04/30/2014 Chest pain of uncertain etiology [R07.9] 04/30/2014 04/29/2021 DKA (diabetic ketoacidoses) (HCC) [E11.10] 04/30/2014 Eating disorder [F50.9] 02/25/2018 04/29/2021 Hypercholesterolemia [E78.00] 05/12/2016 04/29/2021 Von Willebrand's disease (HCC) [D68.00] 04/29/2021 08/13/2022 Mixed hyperlipidemia [E78.2] 04/29/2021 Dysmenorrhea [N94.6] 04/29/2021 Attention deficit hyperactivity disorder (ADHD)*09/24/2021 Encounter Status:Closed by IVAN FERRERA on 10/07/22 Normal [facility] Antithrombin Ag actual/dorothy l IA (PPP) [Relative mass conc]on 08-30-2022 Antithrombin Ag IA Qn (PPP) 84 % Normal 80-120 [facility] Comment on above: Order Comment: Speci men Type: BLOOD SPECIMENOrdering Facility: [facility] Address: [address] [place] [address] Performed By: #### 2 7812-7, 3209-4 ####[facility] LABCLIA [id number] [facility] [id number] [id number] [facility] CNOVon 08-30-2022 CNOV Office Visit ([facility] ) LENY KEN ([id number]) 1995 F Date Time Provider Department 08/30/22 8:15 AM PERRI KRAUS [facility] During your visit today, we recorded the following information about you: Pulse Respiration Blood pressure Weight 86/minute 18/minute 102/69 70.9 kg Height 1.626 m Perri Kraus MD 09/01/2022 7:13 AM Signed Subjective HPI Here for follow-up, has a history of elevated factor VIII, 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 She currently is using oral contraceptives, as she was before. Will need assessment at this point. She has never had blood clots however. Review of Systems Respiratory: Negative for cough, hemoptysis and sputum production. Cardiovascular: Negative for chest pain, palpitations and orthopnea. Objective Physical Exam Cardiovascular: Rate and Rhythm: Normal rate and regular rhythm. Pulses: Normal pulses. Heart sounds: Normal heart sounds. Pulmonary: Effort: Pulmonary effort is normal. Breath sounds: Normal breath sounds. ASSESSMENT/PLAN: 1. Hypercoagulable state (HCC) - ICD9: 289.81, ICD10: D68.59 Do the labs as have been recorded in the chart Perri Kraus MD Allergies As of Date: 08/30/2022 (No Known Allergies) Date Reviewed: 08/30/2022 Reviewed by: Yaneth Price - Fully Assessed Reason for Visit: Follow Up [171] Cmt: Denies any concerns Primary Visit Diagnosis:Hypercoagula ble state (HCC) [D68.59] Prescriptions as of 09/01/2022 - dextroamphetamine-amph etamine (ADDERALL) 20 mg tablet Take 1 tablet by mouth three times daily for 30 days. Do not start before September 20, 2022. - dextroamphetamine-amph etamine (ADDERALL) 20 mg tablet Take 1.5 tablets by mouth three times daily for 30 days. Do not start before August 21, 2022. - dextroamphetamine-amph etamine (ADDERALL) 20 mg tablet Take 1 tablet by mouth three times daily for 30 days. - dextroamphetamine-amph etamine (ADDERALL) 20 mg tablet Take 1 1/2 tablets by mouth in the morning; take 1 tablet by mouth in the afternoon. - Amphetamine-Dextroamph etamine (ADDERALL) 30 mg tablet Take 1 tablet by mouth once daily for 30 days. Do not start before May 01, 2022. - Amphetamine-Dextroamph etamine (ADDERALL) 30 mg tablet Take 1 tablet by mouth once daily for 30 days. - Norethin Skinny-Eth Estrad-FE 1 mg-20 mcg (21)/75 mg (7) per tablet Take 1 tablet by mouth as directed. - HUMALOG KWIKPEN 100 unit/mL inpn INJECT 1 UNIT PER 7 GRAMS OF CARBOHYDRATE, UP TO 40 UNITS DAILY - atorvastatin (LIPITOR) 20 mg tablet Take 1 tablet by mouth daily at bedtime. - insulin glargine (LANTUS) 100 unit/mL injection Inject 27 units QHS and as directed - Insulin Syringe-Needle U-100 1/2 mL 29 syrg Injects once per day. - insulin needles, DISPOSABLE, (BD INSULIN PEN NEEDLE UF) 31 X 5/16 ndle Injects 4 times per day - glucagon, human recombinant, (GLUCAGON EMERGENCY KIT, HUMAN,) 1 mg injection Inject 1 mg intramuscularly as directed. For severe hypoglycemia - blood sugar diagnostic (Moments.meTOUCH ULTRA TEST) test strip Use as instructed. Tests 4 times per day Problem List As Of Date 08/30/2022 Noted Resolved Type 1 diabetes mellitus, uncontrolled (HCC) [I*03/05/2006 Anxiety [F41.9] 12/01/2011 04/29/2021 Vitamin D deficiency [E55.9] 12/04/2011 Hyperglycemia without ketosis [R73.9] 01/29/2012 Depressive disorder, not elsewhere classified [*02/18/2012 04/29/2021 Psychic factors associated with diseases classi*02/18/2012 04/29/2021 PERONEAL TENDINITIS [M77.50] 12/27/2013 04/29/2021 PAIN IN LIMB/ANKLE/FOOT [M79.609] 12/27/2013 04/29/2021 DKA, type 1 (HCC) [E10.10] 04/30/2014 Chest pain of uncertain etiology [R07.9] 04/30/2014 04/29/2021 DKA (diabetic ketoacidoses) (HCC) [E11.10] 04/30/2014 Eating disorder [F50.9] 02/25/2018 04/29/2021 Hypercholesterolemia [E78.00] 05/12/2016 04/29/2021 Von Willebrand's disease (HCC) [D68.00] 04/29/2021 08/13/2022 Mixed hyperlipidemia [E78.2] 04/29/2021 Dysmenorrhea [N94.6] 04/29/2021 Attention deficit hyperactivity disorder (ADHD)*09/24/2021 Encounter Status:Closed by PERRI KRAUS on 09/01/22 Normal [facility] Fact VIII Act/Nor PPPon 04-1 Coagulation factor VIII activity actual/normal Coag (PPP) [Relative time] 130 % Normal 50-173 [facility] Comment on above: Order Comment: Speci men Type: BLOOD SPECIMENOrdering Facility: [facility] Address: [address] [id number] Performed By: #### 2 7812-7, 3209-4 ####[facility] LABCLIA [id number] [place] PROTEIN C FUNCTon 08-30-2022 Protein C actual/normal Coag (PPP) [Relative time] 98 % Normal 76-147 [facility] Comment on above: Order Comment: Speci men Type: BLOOD SPECIMENOrdering Facility: [facility] Address: [address] [place] [address] Performed By: #### P RCFUN, PRSCLT ####[facility] LABCLIA [id number] [address] PROTEIN S CLOTTABLEon 2022 Protein S actual/normal Coag (PPP) [Relative time] 66 % Normal 59-152 [facility] Comment on above: Order Comment: Speci men Type: BLOOD SPECIMENOrdering Facility: [facility] Address: [address] [place] [address] Performed By: #### P RCFUN, PRSCLT ####[facility] [id number] [address] PROTHROMBIN GENE PCRon 08-30 PROTHROMBIN GENE MUTATION Normal [facility] Comment on above: Order Comment: Speci men Type: BLOOD SPECIMENOrdering Facility: [facility] Address: [address] [place] [address] Result Comment: Prot hrombin Gene Mutation Laboratory Accession Number: [id number] Result: NORMAL Interpretation: The DNA sample is negative for the c.*97G>A variant (legacy name 57947O>A) in the 3' untranslated region of the Factor II (F2) gene. This result is not associated with an increased risk of thromboembolic disease. Thromboembolic disease is a multifactorial disorder and other causes are not excluded by this result. Methodology: Isolated Genomic DNA from the patient's blood specimen is evaluated for the c*97G>A ([id number]) variant of the F2 gene [RefSeq [id number];GRCh38/hg38] by multiplex polymerase chain reaction (PCR) followed by melting curve analysis. Limitations: This assay is designed to detect the c.*97G>A (30579K>A) variant in the F2 gene. Uncommon variants or single nucleotide polymorphisms may affect binding of probes and may rarely result in false negative, false positive or indeterminate results. This assay does not detect other disease-associated rare variants in F2 or other causes of thromboembolic disease. Disclaimer: This test was developed and its performance characteristics determined by [facility] [place] ([facility] It has not been cleared or approved by the FDA. [facility] is regulated under CLIA as certified to perform high- complexity testing. This test is used for clinical purposes. It should not be regarded as investigational or for research. Testing and interpretation performed at [facility], [facility] [place] [address]. CLIA Number: [id number] References: 1) Inheritied Thrombophilias in . ACOG Practice Bulletin. No. 197. [place] [employer]. Obsete Gynecol 2018;132:e18-34. 2) Leot SR, Chelsea FR, David PH, and Soledad HERRERA. A common genetic variation in the 3'-untranslated region of the prothrombin gene is associated with elevated plasma prothrombin levels and an increase in venous thrombosis. Blood 88:3698-703, 1996. 3) Sahra I, Ivy V, Irena C, Deandra K. Prothrombin 82816N>T: 16 new cases, association with the 07884T>G polymorphism, and literature review. J Thromb Haemost. 2009;9:1585-7. As reviewed by Eleonora Casillas MD, PhD Performed By: #### P TGEN ####[facility] [id number] [facility] [id number] [facility] PT panel Coag (PPP)on 2022 INR Coag (PPP) [Relative time] 1.1 {INR} Normal 0.9-1.3 [facility] Comment on above: Order Comment: Speci men Type: BLOOD SPECIMENOrdering Facility: [facility] Address: [address] [phone] Result Comment: Leelee min K Antagonist (VKA) Therapeutic Range: INR 2 to 3 (Target INR of 2.5) Note: For patients treated with VKA drugs, such as warfarin, the [place] [employer] 2012 Guideline recommends a therapeutic INR range of 2 to 3 (target INR of 2.5). This recommendation includes high-risk patients with antiphospholipid syndrome with previous arterial or venous thromboembolism, current-generation mechanical or bioprosthetic aortic heart valve replacement. Note: Patients with mechanical aortic valve replacement and additional risk factors for thromboembolic events (atrial fibrillation, previous thromboembolism, LV dysfunction, hypercoagulable conditions) or an older generation mechanical AVR (i.e., ball in-Cage) or any mechanical MVR should have a INR therapeutic range of 2.5 to 3.5 (target INR of 3). Carole GH, et al. Chest 2012, 141:7S-47S Paulino RA, et al. [facility] 2017, 70: 252-289 Performed By: #### 3 4528-0, 10531-9 ####[facility] LABIA [id number] [address] [place] [facility] PT Coag (PPP) [Time] 11.2 s Normal <13.1 [facility] Comment on above: Order Comment: Speci men Type: BLOOD SPECIMENOrdering Facility: [facility] Address: [address] [address] Performed By: #### 3 4528-0, 26086-1 ####[facility] LABIA [id number] [address] [place] [facility] aPTT PPPon 08-30-2022 aPTT Coag (PPP) [Time] 23.5 s Normal 23.0-32.4 [facility] Comment on above: Order Comment: Speci men Type: BLOOD SPECIMENOrdering Facility: [facility] Address: [address] [address] Performed By: #### 3 4528-0, 30578-0 ####[facility] LABIA [id number] [address] [id number] [facility] [place] CNPNon 08-25-2022 CNPN Telephone ([facility]) JESUS MANUELLENY ([id number]) 1995 F Date Time Provider Department 08/25/22 PERRI KRAUS During your visit today, we recorded the following information about you: Kiki Rodrigez MA 08/25/2022 2:33 PM Signed Patient was recently referred to Hematology. Provider is requesting additional information-past records or testing related to diagnosis prior to seeing patient. No encounter in chart associated with referral. Please provide additional details. NAZARIO Yusuf MD 08/25/2022 4:14 PM Signed She has thrombocytosis intermittently Kiki Rodrigez MA 08/26/2022 9:03 AM Signed Left message advising patient that old records are needed prior to appointment with specialist. Kiki Rodrigez MA Allergies As of Date: 08/25/2022 (No Known Allergies) Date Reviewed: 07/24/2022 Reviewed by: Elizabeth Montero RN - Fully Assessed Reason for Visit: Referral Information [1226] Prescriptions as of 10/30/2022 - dextroamphetamine-amph etamine (ADDERALL) 20 mg tablet Take 1 tablet by mouth three times daily for 30 days. Do not start before September 20, 2022. - dextroamphetamine-amph etamine (ADDERALL) 20 mg tablet Take 1.5 tablets by mouth three times daily for 30 days. Do not start before August 21, 2022. - dextroamphetamine-amph etamine (ADDERALL) 20 mg tablet Take 1 tablet by mouth three times daily for 30 days. - dextroamphetamine-amph etamine (ADDERALL) 20 mg tablet Take 1 1/2 tablets by mouth in the morning; take 1 tablet by mouth in the afternoon. - Amphetamine-Dextroamph etamine (ADDERALL) 30 mg tablet Take 1 tablet by mouth once daily for 30 days. Do not start before May 01, 2022. - Amphetamine-Dextroamph etamine (ADDERALL) 30 mg tablet Take 1 tablet by mouth once daily for 30 days. - Norethin Skinny-Eth Estrad-FE 1 mg-20 mcg (21)/75 mg (7) per tablet Take 1 tablet by mouth as directed. - HUMALOG KWIKPEN 100 unit/mL inpn INJECT 1 UNIT PER 7 GRAMS OF CARBOHYDRATE, UP TO 40 UNITS DAILY - atorvastatin (LIPITOR) 20 mg tablet Take 1 tablet by mouth daily at bedtime. - insulin glargine (LANTUS) 100 unit/mL injection Inject 27 units QHS and as directed - Insulin Syringe-Needle U-100 1/2 mL 29 syrg Injects once per day. - insulin needles, DISPOSABLE, (BD INSULIN PEN NEEDLE UF) 31 X 5/16 ndle Injects 4 times per day - glucagon, human recombinant, (GLUCAGON EMERGENCY KIT, HUMAN,) 1 mg injection Inject 1 mg intramuscularly as directed. For severe hypoglycemia - blood sugar diagnostic ([employer] ([employer])UCH ULTRA TEST) test strip Use as instructed. Tests 4 times per day Problem List As Of Date 08/25/2022 Noted Resolved Type 1 diabetes mellitus, uncontrolled (HCC) [I*03/05/2006 Anxiety [F41.9] 12/01/2011 04/29/2021 Vitamin D deficiency [E55.9] 12/04/2011 Hyperglycemia without ketosis [R73.9] 01/29/2012 Depressive disorder, not elsewhere classified [*02/18/2012 04/29/2021 Psychic factors associated with diseases classi*02/18/2012 04/29/2021 PERONEAL TENDINITIS [M77.50] 12/27/2013 04/29/2021 PAIN IN LIMB/ANKLE/FOOT [M79.609] 12/27/2013 04/29/2021 DKA, type 1 (HCC) [E10.10] 04/30/2014 Chest pain of uncertain etiology [R07.9] 04/30/2014 04/29/2021 DKA (diabetic ketoacidoses) (HCC) [E11.10] 04/30/2014 Eating disorder [F50.9] 02/25/2018 04/29/2021 Hypercholesterolemia [E78.00] 05/12/2016 04/29/2021 Von Willebrand's disease (HCC) [D68.00] 04/29/2021 08/13/2022 Mixed hyperlipidemia [E78.2] 04/29/2021 Dysmenorrhea [N94.6] 04/29/2021 Attention deficit hyperactivity disorder (ADHD)*09/24/2021 Encounter Status:Closed by KIKI RODRIGEZ on 10/30/22 [facility] CNOVon 07-24-2022 CNOV Office Visit ([facility] ) LENY KEN ([id number]) 1995 F Date Time Provider Department 07/24/22 1:00 PM PERRI KRAUS [facility] During your visit today, we recorded the following information about you: Pulse Blood pressure Weight 94/minute 133/91 70.8 kg Perri Kraus MD 07/24/2022 1:53 PM Signed Subjective HPI Patient had excellently had a sharp plastic object into her right eardrum at work. She felt a 'pop' and extreme pain with some blood coming out and associated deafness. Review of Systems HENT: Positive for ear pain and hearing loss. Objective Physical Exam HENT: Right Ear: There is hemotympanum. Tympanic membrane is perforated. ASSESSMENT/PLAN: 1. Perforation of right tympanic membrane - ICD9: 384.20, ICD10: H72.91 - LEVOFLOXACIN 500 MG TABLET - CONSULT TO ENT Perri Kraus MD Referring Provider: PERRI KRAUS [[id number]] Allergies As of Date: 07/24/2022 (No Known Allergies) Date Reviewed: 07/24/2022 Reviewed by: Elizabeth Montero RN - Fully Assessed Reason for Visit: Ear Pain [817] Cmt: R ear pain d/t puncture for zip tie; felt a pop Primary Visit Diagnosis:Perforation of right tympanic membrane [H72.91] Order(s):CONSULT TO ENT [9008] Order #: [id number]: 1 FUTURE [] levoFLOXacin (LEVAQUIN) 500 mg tabletTake 1 tablet by mouth once daily for 7 days.Disp: 7 tabletRfl: 0 Prescriptions as of 08/25/2022 - dextroamphetamine-amph etamine (ADDERALL) 20 mg tablet Take 1 tablet by mouth three times daily for 30 days. Do not start before September 20, 2022. - dextroamphetamine-amph etamine (ADDERALL) 20 mg tablet Take 1.5 tablets by mouth three times daily for 30 days. Do not start before August 21, 2022. - dextroamphetamine-amph etamine (ADDERALL) 20 mg tablet Take 1 tablet by mouth three times daily for 30 days. - dextroamphetamine-amph etamine (ADDERALL) 20 mg tablet Take 1 1/2 tablets by mouth in the morning; take 1 tablet by mouth in the afternoon. - Amphetamine-Dextroamph etamine (ADDERALL) 30 mg tablet Take 1 tablet by mouth once daily for 30 days. Do not start before May 01, 2022. - Amphetamine-Dextroamph etamine (ADDERALL) 30 mg tablet Take 1 tablet by mouth once daily for 30 days. - Norethin Skinny-Eth Estrad-FE 1 mg-20 mcg (21)/75 mg (7) per tablet Take 1 tablet by mouth as directed. - HUMALOG KWIKPEN 100 unit/mL inpn INJECT 1 UNIT PER 7 GRAMS OF CARBOHYDRATE, UP TO 40 UNITS DAILY - atorvastatin (LIPITOR) 20 mg tablet Take 1 tablet by mouth daily at bedtime. - insulin glargine (LANTUS) 100 unit/mL injection Inject 27 units QHS and as directed - Insulin Syringe-Needle U-100 1/2 mL 29 syrg Injects once per day. - insulin needles, DISPOSABLE, (BD INSULIN PEN NEEDLE UF) 31 X 5/16 ndle Injects 4 times per day - glucagon, human recombinant, (GLUCAGON EMERGENCY KIT, HUMAN,) 1 mg injection Inject 1 mg intramuscularly as directed. For severe hypoglycemia - blood sugar diagnostic ([employer] ([employer])UCH ULTRA TEST) test strip Use as instructed. Tests 4 times per day Problem List As Of Date 07/24/2022 Noted Resolved Type 1 diabetes mellitus, uncontrolled (HCC) [I*03/05/2006 Anxiety [F41.9] 12/01/2011 04/29/2021 Vitamin D deficiency [E55.9] 12/04/2011 Hyperglycemia without ketosis [R73.9] 01/29/2012 Depressive disorder, not elsewhere classified [*02/18/2012 04/29/2021 Psychic factors associated with diseases classi*02/18/2012 04/29/2021 PERONEAL TENDINITIS [M77.50] 12/27/2013 04/29/2021 PAIN IN LIMB/ANKLE/FOOT [M79.609] 12/27/2013 04/29/2021 DKA, type 1 (HCC) [E10.10] 04/30/2014 Chest pain of uncertain etiology [R07.9] 04/30/2014 04/29/2021 DKA (diabetic ketoacidoses) (HCC) [E11.10] 04/30/2014 Eating disorder [F50.9] 02/25/2018 04/29/2021 Hypercholesterolemia [E78.00] 05/12/2016 04/29/2021 Von Willebrand's disease (HCC) [D68.00] 04/29/2021 Mixed hyperlipidemia [E78.2] 04/29/2021 Dysmenorrhea [N94.6] 04/29/2021 Attention deficit hyperactivity disorder (ADHD)*09/24/2021 Prescriptions ordered this encounter Disp Refills Start End LEVOFLOXACIN 500 MG TABLET 7 ta* 0 07/24/2022 07/24/2022 Route: ORAL Sig: Take 1 tablet by mouth once daily for 7 days. LEVOFLOXACIN 500 MG TABLET 7 ta* 0 07/24/2022 07/31/2022 Route: ORAL Sig: Take 1 tablet by mouth once daily for 7 days. Medications Discontinued During This Encounter Prescriptions - levoFLOXacin (LEVAQUIN) 500 mg tablet (Discontinued) Take 1 tablet by mouth once daily for 7 days. Encounter Status:Closed by PERRI KRAUS on 07/24/22 [facility] Kun 07-22-2022 CNOV Office Visit ([facility] ) LENY KEN ([id number]) 1995 F Date Time Provider Department 07/22/22 5:15 PM PERRI KRAUS During your visit today, we recorded the following information about you: Pulse Blood pressure Weight 99/minute 142/89 70.8 kg Perri Kraus MD 07/23/2022 7:25 AM Signed Subjective HPI Leny Ken is a 26 year old female who presents for follow up of ADHD. She continues to have difficulty focusing and completing tasks with current dose of Adderall, although she has noticed some improvement since starting Adderall. She has been taking 20 mg twice daily (didn't take 1 1/2 tablets in AM as prescribed). No medication side effects. Review of Systems Psychiatric/Behavioral : Negative for depression. The patient is nervous/anxious. Objective Physical Exam Vitals reviewed. Cardiovascular: Rate and Rhythm: Normal rate and regular rhythm. Heart sounds: Normal heart sounds. Pulmonary: Effort: Pulmonary effort is normal. Breath sounds: Normal breath sounds. Psychiatric: Mood and Affect: Mood is anxious. ASSESSMENT/PLAN: 1. Attention deficit hyperactivity disorder (ADHD), combined type - ICD9: 314.01, ICD10: F90.2 - Patient continues to have difficulty focusing and completing tasks. Will increase Adderall to 20 mg 3 times daily. - PDMP website checked and validated. All prescriptions have been APPROPRIATELY filled. No suspicious activity was identified. 07/22/2022 by Mary Torrez APRN.CLINICAL SUPERVISOR - DEXTROAMPHETAMINE-AMPH ETAMINE 20 MG TABLET - DEXTROAMPHETAMINE-AMPH ETAMINE 20 MG TABLET - DEXTROAMPHETAMINE-AMPH ETAMINE 20 MG TABLET - Follow up in 3 months Mary Torrez APRN.CLINICAL SUPERVISOR Attending Note I have personally performed a face to face assessment of the patient and have reviewed the MORENO note. I performed a substantive portion of the visit including all aspects of the following. My quinonez findings include: Here for follow-up, history of attention deficit, appears the dosing may not be adequate for her. Will trial 40 mg in the morning and 20 at noon time. Other additions or changes: None Signature: Perri Kraus MD Date: 07/23/2022 Time: 7:24 AM Allergies As of Date: 07/22/2022 (No Known Allergies) Date Reviewed: 07/22/2022 Reviewed by: Danny Butterfield MA - Fully Assessed Reason for Visit: Follow Up [171] Primary Visit Diagnosis:Attention deficit hyperactivity disorder (ADHD), combined type [F90.2] Order(s):[START ON 09/20/2022] dextroamphetamine-amph etamine (ADDERALL) 20 mg tabletTake 1 tablet by mouth three times daily for 30 days. Do not start before September 20, 2022.Disp: 90 tabletRfl: 0 [START ON 08/21/2022] dextroamphetamine-amph etamine (ADDERALL) 20 mg tabletTake 1.5 tablets by mouth three times daily for 30 days. Do not start before August 21, 2022.Disp: 135 tabletRfl: 0 dextroamphetamine-amph etamine (ADDERALL) 20 mg tabletTake 1 tablet by mouth three times daily for 30 days.Disp: 90 tabletRfl: 0 Prescriptions as of 07/23/2022 - dextroamphetamine-amph etamine (ADDERALL) 20 mg tablet Take 1 tablet by mouth three times daily for 30 days. Do not start before September 20, 2022. - dextroamphetamine-amph etamine (ADDERALL) 20 mg tablet Take 1.5 tablets by mouth three times daily for 30 days. Do not start before August 21, 2022. - dextroamphetamine-amph etamine (ADDERALL) 20 mg tablet Take 1 tablet by mouth three times daily for 30 days. - dextroamphetamine-amph etamine (ADDERALL) 20 mg tablet Take 1 1/2 tablets by mouth in the morning; take 1 tablet by mouth in the afternoon. - Amphetamine-Dextroamph etamine (ADDERALL) 30 mg tablet Take 1 tablet by mouth once daily for 30 days. Do not start before May 01, 2022. - Amphetamine-Dextroamph etamine (ADDERALL) 30 mg tablet Take 1 tablet by mouth once daily for 30 days. - Norethin Skinny-Eth Estrad-FE 1 mg-20 mcg (21)/75 mg (7) per tablet Take 1 tablet by mouth as directed. - HUMALOG KWIKPEN 100 unit/mL inpn INJECT 1 UNIT PER 7 GRAMS OF CARBOHYDRATE, UP TO 40 UNITS DAILY - atorvastatin (LIPITOR) 20 mg tablet Take 1 tablet by mouth daily at bedtime. - insulin glargine (LANTUS) 100 unit/mL injection Inject 27 units QHS and as directed - Insulin Syringe-Needle U-100 1/2 mL 29 syrg Injects once per day. - insulin needles, DISPOSABLE, (BD INSULIN PEN NEEDLE UF) 31 X 16 ndle Injects 4 times per day - glucagon, human recombinant, (GLUCAGON EMERGENCY KIT, HUMAN,) 1 mg injection Inject 1 mg intramuscularly as directed. For severe hypoglycemia - blood sugar diagnostic (Moments.meTOUCH ULTRA TEST) test strip Use as instructed. Tests 4 times per day Problem List As Of Date 07/22/2022 Noted Resolved Type 1 diabetes mellitus, uncontrolled (HCC) [I*03/05/2006 Anxiety [F41.9] 12/01/2011 04/29/2021 Vitamin D deficiency [E55.9] 12/04/2011 Hyperglycemia without ketosis [R73.9] 01/29/2012 Depressive disorder, not (more content not included)... Normal [facility] EMG(NEURO/NI)on 04-26-2022 [facility] CBC With Platelet No Differe ntialon 04-18-2022 Erythrocyte distribution width (RBC) [Ratio] 12.4 % Normal 11.5-14.5 [facility] Comment on above: Performed By: #### C BCND #### [facility] [address] [place] [address] Hematocrit (Bld) [Volume fraction] 37.8 % Normal 37.0-47.0 [facility] Comment on above: Performed By: #### C BCND #### [facility] [address] [place] [address] Hemoglobin (Bld) [Mass/Vol] 13.3 g/dL Normal 12.0-16.0 [facility] Comment on above: Performed By: #### C BCND #### [facility] [address] [place] [address] MCH (RBC) [Entitic mass] 32.6 pg Critically high 27.0-31.3 [facility] Comment on above: Performed By: #### C BCND #### [facility] [address] [place] [address] MCHC 35.2 % Normal 33.0-37.0 [facility] Comment on above: Performed By: #### C BCND #### [facility] [address] [place] [address] MCV (RBC) [Entitic vol] 92.7 fL Normal 79.4-94.8 [facility] Comment on above: Performed By: #### C BCND #### [facility] [address] [place] [address] Platelets (Bld) [#/Vol] 298 10*3/uL Normal 130-400 [facility] Comment on above: Performed By: #### C BCND #### [facility] [address] [place] [address] RBC (Bld) [#/Vol] 4.08 10*6/uL Low 4.20-5.40 [facility] Comment on above: Performed By: #### C BCND #### [facility] [address] [place] [address] WBC (Bld) [#/Vol] 4.0 10*3/uL Low 4.8-10.8 [facility] Comment on above: Performed By: #### C BCND #### [facility] [address] [place] [address] Comprehensive Metabolic Pane emily 04-18-2022 Albumin [Mass/Vol] 4.2 g/dL Normal 3.5-4.6 [facility] Comment on above: Performed By: #### C MP #### [facility] [address] [place] [address] ALP [Catalytic activity/Vol] 44 U/L Normal 40-130 [facility] Comment on above: Performed By: #### C MP #### [facility] [address] [place] [address] ALT [Catalytic activity/Vol] 14 U/L Normal 0-33 [facility] Comment on above: Performed By: #### C MP #### [facility] [address] [place] [address] Anion gap [Moles/Vol] 11 mmol/L Normal 9-15 [facility] Comment on above: Performed By: #### C MP #### [facility] [address] [place] [address] AST [Catalytic activity/Vol] 21 U/L Normal 0-35 [facility] Comment on above: Performed By: #### C MP #### [facility] [address] [place] [address] Bilirubin [Mass/Vol] 0.4 mg/dL Normal 0.2-0.7 [facility] Comment on above: Performed By: #### C MP #### [facility] [address] [place] [address] Calcium [Mass/Vol] 9.1 mg/dL Normal 8.5-9.9 [facility] Comment on above: Performed By: #### C MP #### [facility] [address] [place] [address] Chloride [Moles/Vol] 103 mmol/L Normal 95-107 [facility] Comment on above: Performed By: #### C MP #### [facility] [address] [place] [address] CO2 [Moles/Vol] 26 mmol/L Normal 20-31 [facility] Comment on above: Performed By: #### C MP #### [facility] [address] [place] [address] Creatinine [Mass/Vol] 0.60 mg/dL Normal 0.50-0.90 [facility] Comment on above: Performed By: #### C MP #### [facility] [address] [place] [address] GFR >60.0 Normal >60 [facility] Comment on above: Result Comment: Pedi atric calculator link https://www.kidney.org/professionals/kdoqi/gfr_calculatorped Effective Feb 17, 2022 These results are not intended for use in patients <18 years of age. eGFR results are calculated without a race factor using the 2020 CKD-EPI equation. Careful clinical correlation is recommended, particularly when comparing to results calculated using previous equations. The CKD-EPI equation is less accurate in patients with extremes of muscle mass, extra-renal metabolism of creatinine, excessive creatinine ingestion, or following therapy that affects renal tubular secretion. Performed By: #### C MP #### [facility] [address] [place] [address] Globulin (S) [Mass/Vol] 2.5 g/dL Normal 2.3-3.5 [facility] Comment on above: Performed By: #### C MP #### [facility] [address] [place] [address] Glucose [Mass/Vol] 50 mg/dL Low 70-99 [facility] Comment on above: Performed By: #### C MP #### [facility] [address] [place] [address] Potassium [Moles/Vol] 4.4 mmol/L Normal 3.4-4.9 [facility] Comment on above: Performed By: #### C MP #### [facility] [address] [place] [address] Protein [Mass/Vol] 6.7 g/dL Normal 6.3-8.0 [facility] Comment on above: Performed By: #### C MP #### [facility] [address] [place] [address] Sodium [Moles/Vol] 140 mmol/L Normal 135-144 [facility] Comment on above: Performed By: #### C MP #### [facility] [address] [place] [address] Urea nitrogen [Mass/Vol] 11 mg/dL Normal 6-20 [facility] Comment on above: Performed By: #### C MP #### [facility] [address] [place] [address] Hemoglobin A1con 04-18-2022 HbA1c (Bld) [Mass fraction] 6.8 % Critically high 4.8-5.9 [facility] Comment on above: Performed By: #### A 1C #### [facility] [address] [place] [address] Lipid Panelon 04-18-2022 Cholesterol [Mass/Vol] 150 mg/dL Normal 0-199 [facility] Comment on above: Result Comment: ATP III Cholesterol classification is Desirable. Performed By: #### L IPID #### [facility] [address] [place] [address] Cholesterol in HDL [Mass/Vol] 56 mg/dL Normal 40-59 [facility] Comment on above: Result Comment: ATP III HDL Cholesterol Classification is Desirable. Expected Values: Males: >55 = No Risk 35-55 = Moderate Risk <35 = High Risk Females: >65 = No Risk 45-65 = Moderate Risk <45 = High Risk NCEP Guidelines: Third Report September 2000 >59 = negative risk factor for CHD <40 = major risk factor for CHD Performed By: #### L IPID #### [facility] [address] [place] [address] Cholesterol in LDL [Mass/Vol] 83 mg/dL Normal 0-129 [facility] Comment on above: Result Comment: ATP III LDL Classification is Optimal. Performed By: #### L IPID #### [facility] [address] [place] [address] Triglyceride [Mass/Vol] 53 mg/dL Normal 0-150 [facility] Comment on above: Result Comment: ATP III Triglycerides Classification is Normal. Performed By: #### L IPID #### [facility] [address] [place] [address] Culture, Throaton 04-22-2021 Culture, Throat ORDER#: [id number] ORDERED BY: ROSA MILAN SOURCE: Throat COLLECTED: 04/22/21 18:25 ANTIBIOTICS AT DAYNA.: RECEIVED : 04/22/21 18:31 Culture, Throat FINAL 04/24/21 10:32 Normal dolly isolated including Beta Strep, not group A Normal [facility] Comment on above: Performed By: #### C XTHR #### [facility] [address] [place] [id number] Vital Signs Date Time Vital Sign Value Performing Clinician Alec dick 07-16-2023 14:15-0500 Body temperature 97.9 [degF] Sherry Ceballos WOOD SCRAP HANDLER.CLINICAL SUPERVISOR Work Phone: [facility] 07-16-2023 14:15-0500 Diastolic blood pressure 84 mm[Hg] Sherry Ceballos WOOD SCRAP HANDLER.CLINICAL SUPERVISOR Work Phone: [facility] 07-16-2023 14:15-0500 Heart rate 91 /min Sherry Ceballos WOOD SCRAP HANDLER.CLINICAL SUPERVISOR Work Phone: [facility] 07-16-2023 14:15-0500 Respiratory rate 16 /min Sherry Ceballos WOOD SCRAP HANDLER.CLINICAL SUPERVISOR Work Phone: [facility] 07-16-2023 14:15-0500 SaO2% (BldA) [Mass fraction] 100 % Sherry Ceballos WOOD SCRAP HANDLER.CLINICAL SUPERVISOR Work Phone: [facility] 07-16-2023 14:15-0500 Systolic blood pressure 125 mm[Hg] Sherry Ceballos WOOD SCRAP HANDLER.CLINICAL SUPERVISOR Work Phone: [facility] 07-24-2022 12:15-0500 Body weight 70.8 kg Perri Kraus MD Work Phone: [facility] 07-24-2022 12:15-0500 Diastolic blood pressure 91 mm[Hg] Perri Kraus MD Work Phone: [facility] 07-24-2022 12:15-0500 Heart rate 94 /min Perri Kraus MD Work Phone: [facility] 07-24-2022 12:15-0500 SaO2% (BldA) [Mass fraction] 100 % Perri Kraus MD Work Phone: [facility] 07-24-2022 12:15-0500 Systolic blood pressure 133 mm[Hg] Perri Kraus MD Work Phone: [facility] 04-01-2022 17:23-0500 Body height 160 cm Perri Kraus MD Work Phone: [facility] 04-01-2022 17:23-0500 Body weight 71.67 kg Perri Kraus MD Work Phone: [facility] 12-24-2021 15:38-0400 Body height 160 cm Perri Kraus MD Work Phone: [facility] 12-24-2021 15:38-0400 Body weight 73.48 kg Perri Kraus MD Work Phone: [facility] 12-24-2021 15:38-0400 Diastolic blood pressure 77 mm[Hg] Perri Kraus MD Work Phone: [facility] 12-24-2021 15:38-0400 Heart rate 83 /min Perri Kraus MD Work Phone: [facility] 12-24-2021 15:38-0400 Respiratory rate 20 /min Perri Kraus MD Work Phone: [facility] 12-24-2021 15:38-0400 Systolic blood pressure 125 mm[Hg] Perri Kraus MD Work Phone: [facility] 09-23-2021 13:33-0400 Body height 160 cm Perri Kraus MD Work Phone: [facility] 09-23-2021 13:33-0400 Body weight 73.03 kg Perri Kraus MD Work Phone: [facility] 09-23-2021 13:33-0400 Diastolic blood pressure 79 mm[Hg] Perri Kraus MD Work Phone: [facility] 09-23-2021 13:33-0400 Heart rate 98 /min Perri Kraus MD Work Phone: [facility] 09-23-2021 13:33-0400 SaO2% (BldA) [Mass fraction] 97 % Perri Kraus MD Work Phone: [facility] 09-23-2021 13:33-0400 Systolic blood pressure 116 mm[Hg] Perri Kraus MD Work Phone: [facility] Encounters Encounter Date Encounter Type Care Provider Facility Start: 07-16-2023 End: 07-16-2023 ambulatory SHERRY CEBALLOS Facility:[facility] Start: 07-16-2023 End: 07-16-2023 Office outpatient visit 15 minutes Sherry Omari Robin WOOD SCRAP HANDLER.CLINICAL SUPERVISOR Work Phone: [facility] Comment on above: Laceration of index finger of left hand without complication, initial encounter (Primary Dx) Start: 05-21-2023 End: 05-22-2023 ambulatory [facility] Facility:[facility] Start: 02-26-2023 Telephone encounter Perri Kraus MD Work Phone: [facility] [place] Comment on above: Medication Problem Start: 02-20-2023 End: 02-20-2023 ambulatory [facility] Facility:[facility] Start: 01-12-2023 Refill Perri guan MD Work Phone: [facility] [place] Comment on above: Refill Request Start: 12-24-2022 Telephone encounter Mary shaw WOOD SCRAP HANDLER.CLINICAL SUPERVISOR Work Phone: [address] [place] [address] Comment on above: Medication Problem Start: 12-02-2022 Refill Perri guan MD Work Phone: [facility] [place] Comment on above: Refill Request Start: 10-07-2022 End: 10-07-2022 ambulatory IVAN Nolasco KELLY Facility:[facility] Start: 08-30-2022 End: 08-31-2022 ambulatory [facility] Facility:[facility] Start: 08-27-2022 Orders Only Stephanie Chatman MD Work Phone: Hematology/Medical Oncology Comment on above: Thrombocytosis (Prim vianey Dx) Start: 07-29-2022 End: 07-29-2022 ambulatory MILAGROS LOCKE Facility: Start: 07-24-2022 End: 07-24-2022 ambulatory PERRI ZENDEJASARAM Facility:[facility] Start: 07-24-2022 End: 07-24-2022 Patient encounter procedure Perri Kraus MD Work Phone: [facility] [place] Comment on above: Perforation of right tympanic membrane (Primary Dx) Start: 07-22-2022 End: 07-22-2022 ambulatory PERRI KRAUS Facility:[facility] Start: 07-01-2022 Telephone encounter Mary shaw WOOD SCRAP HANDLER.CLINICAL SUPERVISOR Work Phone: [facility] Medicine [place] Comment on above: Appointment Start: 06-17-2022 ambulatory Perri guan MD Work Phone: Internal Medicine [facility] Start: 06-05-2022 Refill Perri guan MD Work Phone: Internal Medicine [place] Comment on above: Refill Request Start: 04-28-2022 Telephone encounter Mary shaw WOOD SCRAP HANDLER.CLINICAL SUPERVISOR Work Phone: [facility] [place] Comment on above: Results Start: 04-26-2022 End: 04-26-2022 ambulatory Emg 400) Work Phone: Neurology Comment on above: EMG Start: 04-26-2022 End: 04-26-2022 Patient encounter procedure Emg Neur Rej (Max Weight: 400) Work Phone: [facility] Start: 04-01-2022 End: 04-01-2022 Patient encounter procedure Perri Kraus MD Work Phone: Internal Medicine [place] Comment on above: Bilateral arm numbne ss and tingling while sleeping (Primary Dx); Attention deficit hyperactivity disorder (ADHD), combined type Start: 03-11-2022 ambulatory Perri guan MD Work Phone: [facility] [place] Start: 12-24-2021 End: 12-24-2021 Patient encounter procedure Perri Kraus MD Work Phone: [facility] [place] Comment on above: Attention deficit hy peractivity disorder (ADHD), combined type Start: 12-10-2021 ambulatory Perri guan MD Work Phone: [facility] [place] Start: 10-24-2021 Refill Perri guan MD Work Phone: [facility] [place] Comment on above: Refill Request Start: 09-26-2021 Refill Perri guan MD Work Phone: [facility] [place] Comment on above: Refill Request Start: 09-23-2021 End: 09-23-2021 Patient encounter procedure Perri Kraus MD Work Phone: [facility] [place] Comment on above: Attention deficit hy peractivity disorder (ADHD), combined type (Primary Dx) Procedures Date Procedure Procedure Detail Performing Clinician Start: 04-26-2022 Nerve conduction cassandra dies 5-6 studies Perri Kraus MD Work Phone: Start: 09-10-2021 Adult depression screening assessment Perri Kraus MD Work Phone: Plan of Treatment Date Care Activity Detail Author Start: 07-15-2033 Urine microalbumin profile DTaP,Tdap,Td Vaccine (3 - Td or Tdap) [facility] Start: 09-06-2025 Urine microalbumin profile [facility] Start: 05-21-2024 Annual PCP Team Detective Precinct angel Disease Visit Annual PCP Team Chronic Disease Visit [facility] Start: 05-21-2024 Hepatitis B screening Urine Al bumin:Creatinine Ratio [facility] Start: 04-29-2024 PAP TESTING PAP TESTING [facility] Start: 04-29-2024 Screening for malign ant neoplasm of cervix Pap Testing [facility] Start: 02-21-2024 Annual PCP Team Detective Precinct angel Disease Visit Annual PCP Team Chronic Disease Visit [facility] Start: 11-19-2023 Hemoglobin A1c measurement HbA1C [facility] Start: 08-31-2023 ANNUAL PCP TEAM PRINTER OPERATOR ANGEL DISEASE VISIT ANNUAL PCP TEAM CHRONIC DISEASE VISIT [facility] Start: 08-22-2023 Hemoglobin A1c/Hemoglobin.total in Blood HbA1C [facility] Start: 07-25-2023 ANNUAL PCP TEAM PRINTER OPERATOR ANGEL DISEASE VISIT ANNUAL PCP TEAM CHRONIC DISEASE VISIT [facility] Start: 05-18-2023 Depression Assessment Depression Ass essment [facility] Start: 04-18-2023 Hepatitis B surface antibody level LDL CHOLESTEROL [facility] Start: 04-01-2023 ANNUAL PCP TEAM PRINTER OPERATOR ANGEL DISEASE VISIT ANNUAL PCP TEAM CHRONIC DISEASE VISIT [facility] Start: 01-16-2023 Covid-19 Vaccine ( season) Covid-19 Vaccine () [facility] Start: 01-16-2023 Influenza vaccination [facility] Start: 12-24-2022 ANNUAL PCP TEAM PRINTER OPERATOR ANGEL DISEASE VISIT ANNUAL PCP TEAM CHRONIC DISEASE VISIT [facility] Start: 10-17-2022 Hemoglobin A1c/Hemoglobin.total in Blood HBA1C [facility] Start: 09-23-2022 ANNUAL PCP TEAM PRINTER OPERATOR ANGEL DISEASE VISIT ANNUAL PCP TEAM CHRONIC DISEASE VISIT [facility] Start: 09-10-2022 Adult depression screening assessment DEPRESSION SCREENING [facility] Start: 09-03-2022 End: 11-03-2022 CBC W Ordered Manual Differential panel - Blood PATHOLOGIST INTERPRETATION WITH CBC AND DIFF Lab Routine Thrombocytosis Expected: 09/03/2022 (Approximate), Expires: 11/03/2022 [facility] Work Phone: Comment on above: Expected: 09/03/2022 (Approximate), Expires: 11/03/2022 Start: 07-01-2022 End: 08-31-2022 25-hydroxyvitamin D3 [Mass/volume] in Serum or Plasma VITAMIN D 25 HYDROXY Lab Routine Vitamin D deficiency Expected: 07/01/2022, Expires: 08/31/2022 [facility] Work Phone: Comment on above: Expected: 07/01/2022 , Expires: 08/31/2022 Start: 07-01-2022 End: 08-31-2022 ALBUMIN/CREAT RATIO RND UR ALBUMIN/CREAT RATIO RND UR Lab Routine Uncontrolled type 2 diabetes mellitus with hyperglycemia (HCC) Expected: 07/01/2022, Expires: 08/31/2022 [facility] Work Phone: Comment on above: Expected: 07/01/2022 , Expires: 08/31/2022 Start: 07-01-2022 End: 08-31-2022 CBC W Auto Differential panel - Blood CBC + DIFF Lab Routine Uncontrolled type 2 diabetes mellitus with hyperglycemia (HCC) Expected: 07/01/2022, Expires: 08/31/2022 [facility] Work Phone: Comment on above: Expected: 07/01/2022 , Expires: 08/31/2022 Start: 07-01-2022 End: 08-31-2022 Comprehensive metabolic 2000 panel - Serum or Plasma COMP METABOLIC PANEL Lab Routine Uncontrolled type 2 diabetes mellitus with hyperglycemia (HCC) Expected: 07/01/2022, Expires: 08/31/2022 [facility] Work Phone: Comment on above: Expected: 07/01/2022 , Expires: 08/31/2022 Start: 07-01-2022 End: 08-31-2022 Hemoglobin A1c in Blood HGB A1C Lab Routine Uncontrolled type 2 diabetes mellitus with hyperglycemia (HCC) Expected: 07/01/2022, Expires: 08/31/2022 [facility] Work Phone: Comment on above: Expected: 07/01/2022 , Expires: 08/31/2022 Start: 07-01-2022 End: 08-31-2022 Hepatitis C virus Ab [Presence] in Serum HEP C AB IA W/CONF SCRN Lab Routine Special screening examination for viral disease Expected: 07/01/2022, Expires: 08/31/2022 [facility] Work Phone: Comment on above: Expected: 07/01/2022 , Expires: 08/31/2022 Start: 07-01-2022 End: 08-31-2022 HIV 1+2 Ab [Presence] in Serum or Plasma by Immunoassay HIV 1 2 COMBO(AG/AB),WITH REFLEX TO DIFFERENTIATION Lab Routine Screening for HIV (human immunodeficiency virus) Expected: 07/01/2022, Expires: 08/31/2022 [facility] Work Phone: Comment on above: Expected: 07/01/2022 , Expires: 08/31/2022 Start: 07-01-2022 End: 08-31-2022 Lipid 1996 panel - Serum or Plasma LIPID PANEL BASIC Lab Routine Mixed hyperlipidemia Expected: 07/01/2022, Expires: 08/31/2022 [facility] Work Phone: Comment on above: Expected: 07/01/2022 , Expires: 08/31/2022 Start: 07-01-2022 End: 08-31-2022 URINALYSIS, REFLEX MICROSCOPIC URINALYSIS, REFLEX MICROSCOPIC Lab Routine Uncontrolled type 2 diabetes mellitus with hyperglycemia (HCC) Expected: 07/01/2022, Expires: 08/31/2022 [facility] Work Phone: Comment on above: Expected: 07/01/2022 , Expires: 08/31/2022 Start: 06-17-2022 End: 08-17-2022 Basic metabolic 2000 panel - Serum or Plasma BASIC METABOLIC PNL Lab Routine DKA (diabetic ketoacidosis) ([facility]) Expected: 06/17/2022, Expires: 08/17/2022 [facility] Work Phone: Comment on above: Expected: 06/17/2022 , Expires: 08/17/2022 Start: 06-17-2022 End: 08-17-2022 Hemoglobin A1c in Blood HGB A1C Lab Routine DKA (diabetic ketoacidosis) ([facility]) Expected: 06/17/2022, Expires: 08/17/2022 [facility] Work Phone: Comment on above: Expected: 06/17/2022 , Expires: 08/17/2022 Start: 06-17-2022 End: 08-17-2022 Lipid 1996 panel - Serum or Plasma LIPID PANEL BASIC Lab Routine Mixed hyperlipidemia Expected: 06/17/2022, Expires: 08/17/2022 [facility] Work Phone: Comment on above: Expected: 06/17/2022 , Expires: 08/17/2022 Start: 06-17-2022 End: 08-17-2022 SCHEDULE LAB TESTING SCHEDULE LAB TESTING Lab Routine Expected: 06/17/2022, Expires: 08/17/2022 [facility] Work Phone: Comment on above: Expected: 06/17/2022 , Expires: 08/17/2022 Start: 05-18-2022 DEPRESSION ASSESSMENT DEPRESSION ASS ESSMENT [facility] Start: 03-11-2022 End: 05-11-2022 Basic metabolic 2000 panel - Serum or Plasma BASIC METABOLIC PNL Lab Routine DKA (diabetic ketoacidosis) (HCC) Expected: 03/11/2022, Expires: 05/11/2022 [facility] Work Phone: Comment on above: Expected: 03/11/2022 , Expires: 05/11/2022 Start: 03-11-2022 End: 05-11-2022 Hemoglobin A1c in Blood HGB A1C Lab Routine DKA (diabetic ketoacidosis) (HCC) Expected: 03/11/2022, Expires: 05/11/2022 [facility] Work Phone: Comment on above: Expected: 03/11/2022 , Expires: 05/11/2022 Start: 03-11-2022 End: 05-11-2022 Lipid 1996 panel - Serum or Plasma LIPID PANEL BASIC Lab Routine Mixed hyperlipidemia Expected: 03/11/2022, Expires: 05/11/2022 [facility] Work Phone: Comment on above: Expected: 03/11/2022 , Expires: 05/11/2022 Start: 03-11-2022 End: 05-11-2022 SCHEDULE LAB TESTING SCHEDULE LAB TESTING Lab Routine Expected: 03/11/2022, Expires: 05/11/2022 [facility] Work Phone: Comment on above: Expected: 03/11/2022 , Expires: 05/11/2022 Start: 01-16-2022 Influenza vaccination [facility] Start: 12-10-2021 End: 02-09-2022 Basic metabolic 2000 panel - Serum or Plasma BASIC METABOLIC PNL Lab Routine Medication management Expected: 12/10/2021, Expires: 02/09/2022 [facility] Work Phone: Comment on above: Expected: 12/10/2021 , Expires: 02/09/2022 Start: 12-10-2021 End: 02-09-2022 Hemoglobin A1c in Blood HGB A1C Lab Routine Medication management Expected: 12/10/2021, Expires: 02/09/2022 [facility] Work Phone: Comment on above: Expected: 12/10/2021 , Expires: 02/09/2022 Start: 12-10-2021 End: 02-09-2022 Lipid 1996 panel - Serum or Plasma LIPID PANEL BASIC Lab Routine Mixed hyperlipidemia Expected: 12/10/2021, Expires: 02/09/2022 [facility] Work Phone: Comment on above: Expected: 12/10/2021 , Expires: 02/09/2022 Start: 12-10-2021 End: 02-09-2022 SCHEDULE LAB TESTING SCHEDULE LAB TESTING Lab Routine Expected: 12/10/2021, Expires: 02/09/2022 [facility] Work Phone: Comment on above: Expected: 12/10/2021 , Expires: 02/09/2022 Start: 06-10-2021 COVID-19 VACCINE (3 - Booster for Moderna series) COVID-19 VACCINE (3 - Booster for Moderna series) [facility] Start: 05-18-2021 DEPRESSION ASSESSMENT DEPRESSION ASS ESSMENT [facility] Start: 03-05-2021 COVID-19 VACCINE (3 - Booster for Moderna series) COVID-19 VACCINE (3 - Booster for Moderna series) [facility] Start: 03-05-2021 COVID-19 VACCINE (3 - Moderna series) COVID-19 VACCINE (3 - Moderna series) [facility] Start: 02-25-2019 Hepatitis B screening URINE AL BUMIN:CREATININE RATIO [facility] Start: 02-25-2019 Hepatitis B surface antibody level LDL CHOLESTEROL [facility] Start: 04-09-2016 HPV VACCINE (2 - 3-d ose series) HPV VACCINE (2 - 3-dose series) [facility] Start: 09-23-2015 HEPATITIS B (1 of 3 - Risk 3-dose series) HEPATITIS B (1 of 3 - Risk 3-dose series) [facility] Start: 2014 HEPATITIS C SCREENING HEPATITIS C [facility] Start: 2014 Hepatitis C screening Hepatitis C [facility] Start: 2014 HIV SCREENING HIV SCREENING [facility] Start: 2014 HIV screening HIV Screening [facility] Start: 2012 ONE PNEUMOVAX PRIOR TO AGE 66 ONE PNEUMOVAX PRIOR TO AGE 66 [facility] Start: 2010 PEDS TO ADULT TRANSITION ANNUAL ASSESSMENT PEDS TO ADULT TRANSITION ANNUAL ASSESSMENT [facility] Start: 2008 PEDS TO ADULT TRANSITION INITIAL DISCUSSION PEDS TO ADULT TRANSITION INITIAL DISCUSSION [facility] Start: 2006 3 comp foot exam completed DIABETIC FOOT EXAM [facility] Start: 2006 Diabetic foot examination Diabetic Foot Exam [facility] Start: 2006 Glaucoma screening Dilated Retinal E xam [facility] Start: 2006 Hepatitis C antibody , confirmatory test DILATED RETINAL EXAM [facility] Start: 2002 PNEUMOCOCCAL (1 - PCV) PNEUMOCOCCAL (1 - PCV) [facility] Start: 2002 Pneumococcal vaccination [facility] Start: 1996 HEPATITIS B (1 of 3 - 3-dose series) HEPATITIS B (1 of 3 - 3-dose series) [facility] Start: 1996 Hepatitis B Vaccine (1 of 3 - 3-dose series) Hepatitis B Vaccine (1 of 3 - 3-dose series) [facility] End: 04-01-2023 EMG(NEURO/NI) EMG(NEURO/NI) EMG Routine Bilateral arm numbness and tingling while sleeping 1 Occurrences starting 04/01/2022 until 04/01/2023 [facility] Work Phone: Comment on above: 1 Occurrences starti ng 04/01/2022 until 04/01/2023 [facility] Immunizations Immunization Date Immunization Notes Care Provider Fa cility 07-16-2023 tetanus toxoid, redu hazel diphtheria toxoid, and acellular pertussis vaccine, adsorbed Sherry Ceballos APRN.CNP Work Phone: [facility] 03-12-2016 Human Papillomavirus 9-valent vaccine Perri Kraus MD Work Phone: [facility] 09-07-2015 tetanus toxoid, redu hazel diphtheria toxoid, and acellular pertussis vaccine, adsorbed Perri Kraus MD Work Phone: [facility] 05-21-2012 influenza virus vacc ine, unspecified formulation Perri Kraus MD Work Phone: [facility] 01-28-2012 pneumococcal conjuga te vaccine, 7 valent Perri Kraus MD Work Phone: [facility] 03-28-2009 novel influenza-H1N1 -09, preservative-free, injectable Perri Kraus MD Work Phone: [facility] 02-22-2009 influenza virus vacc ine, unspecified formulation Perri Kraus MD Work Phone: [facility] 04-06-2008 influenza virus vacc ine, unspecified formulation Perri Kraus MD Work Phone: [facility] Payers Date Payer Category Payer Unknown UNKNOWN 2018 Unknown MMO MMO [id number] 2018-Present [phone] [address] [place] [address] PPO [id number] 2018 Unknown [id number] 1996 Unknown [id number] 1959 Unknown [id number] 1959 Unknown [id number] Social History Date Type Detail Facility Start: 12-01-2011 End: 12-24-2021 Tobacco smoking status NHIS Never smoked tobacco [facility] Start: 12-01-2011 End: 12-24-2021 Tobacco use and exposure Smokeless tobacco non-user [facility] Start: 09-23-2021 End: 07-16-2023 Alcohol intake Current drinker of alcohol (finding) [facility] Start: 04-29-2021 History SDOH Alcohol Comment once a week [facility] Start: 1996 Sex Assigned At Not on file C [facility] Start: 08-31-2021 End: 04-01-2022 Exposure to SARS-CoV-2 (event) Not sure [facility] Start: 09-10-2021 End: 10-07-2022 History of Social function [facility] Start: 09-10-2021 End: 10-07-2022 Tobacco use panel [facility] National Score (1-10 0), lower number is lower risk 55 [facility] Medical Equipment Procedure Code Equipment Code Equipment Origin al Text Equipment Identifier Dates Use as instructe d. Tests 4 times per day Start: 08-24-2014 Comment on above: Use as instructed. T ests 4 times per day Clinical Notes 02-25-2018 to 07-16-2023 Patient InstructionsSherry Ceballos APRN.STEFAN - 07/16/2023 2:22 PM ESTTelephone Encounter - Kiki Rodrigez MA - 02/26/2023 9:47 AM Cici Kraus MD - 07/24/2022 12:39 PM EST Note Date & Type Note Facility 07-16-2023 Note HNO ID: [id number] Author: SHERRY CEBALLOS APRN.CLINICAL SUPERVISOR Service: ? Author Type: Nurse Practitioner Type: Progress Notes Filed: 07/16/2023 14:37 Note Text: This note was created using NoteWriter. Subjective Leny Ken is a 27 year old female. This 27 year old female presents to [facility] with flap cut, superficial to left index finger x 3 days, needs tetanus, started [facility] clain at work but has not been seen, pt is DM I. Pt is in NAD. Last tetanus 09/07/2015. The history is provided by the patient. Review of Systems Constitutional: Negative for activity change, appetite change, chills, diaphoresis, fatigue and fever. Respiratory: Negative for shortness of breath. Cardiovascular: Negative for chest pain. Gastrointestinal: Negative for abdominal pain, diarrhea, nausea and vomiting. Musculoskeletal: Negative for arthralgias, myalgias, neck pain and neck stiffness. Skin: Positive for wound. Left index finger, superficial flap cut, on chuck metal shelving, x 3 days ago Allergic/Immunologic: Positive for immunocompromised state. DM I Hematological: Does not bruise/bleed easily. Psychiatric/Behavioral: Negative. Objective BP 125/84 (BP Site: Right Arm, BP Position: Sitting, BP Cuff Size: Large Adult) Pulse 91 Temp 36.6 ?C (97.9 ?F) (Oral) Resp 16 LMP 08/05/2017 (Within Weeks) SpO2 100% PAST MEDICAL HISTORY Diagnosis Date Diabetes mellitus without mention of complication diagnosed 11/2005 Dysmenorrhea Eating disorder 02/25/2018 Binge eating Mixed hyperlipidemia Von Willebrand's disease (HCC) Current Outpatient Medications on File Prior to Visit Medication Sig dextroamphetamine-amphetamine (ADDERALL) 20 mg tablet Take 1 tablet by mouth three times a day for 30 days. [START ON 07/20/2023] dextroamphetamine-amphetamine (ADDERALL) 20 mg tablet Take 1 tablet by mouth three times a day for 30 days. Do not start before July 20, 2023. dextroamphetamine-amphetamine (ADDERALL) 20 mg tablet Take 1 tablet by mouth three times a day for 30 days. Do not start before June 20, 2023. insulin lispro (HUMALOG KWIKPEN INSULIN) 100 unit/mL INJECT 1 UNIT PER 7 GRAMS OF CARBOHYDRATE, UP TO 40 UNITS DAILY insulin glargine (LANTUS U-100 INSULIN) 100 unit/mL injection Inject 27 units QHS and as directed Norethin Skinny-Eth Estrad-FE 1 mg-20 mcg (21)/75 mg (7) per tablet Take 1 tablet by mouth as directed. atorvastatin (LIPITOR) 20 mg tablet Take 1 tablet by mouth daily at bedtime. Insulin Syringe-Needle U-100 1/2 mL 29 syrg Injects once per day. insulin needles, DISPOSABLE, (BD INSULIN PEN NEEDLE UF) 31 X 5/16 ndle Injects 4 times per day glucagon, human recombinant, (GLUCAGON EMERGENCY KIT, HUMAN,) 1 mg injection Inject 1 mg intramuscularly as directed. For severe hypoglycemia blood sugar diagnostic (Moments.meTOUCH ULTRA TEST) test strip Use as instructed. Tests 4 times per day No current facility-administered medications on file prior to visit. Physical Exam Vitals and nursing note reviewed. Constitutional: General: She is not in acute distress. Appearance: Normal appearance. She is not ill-appearing, toxic-appearing or diaphoretic. HENT: Head: Normocephalic and atraumatic. Cardiovascular: Rate and Rhythm: Normal rate. Pulmonary: Effort: Pulmonary effort is normal. Abdominal: Palpations: Abdomen is soft. Musculoskeletal: General: Normal range of motion. Skin: General: Skin is warm. Capillary Refill: Capillary refill takes less than 2 seconds. Findings: No erythema. Comments: Left index finger flap laceration, clean, no appreciated infection, no bleeding or discharge, minimal swelling Neurological: Mental Status: She is alert and oriented to person, place, and time. Psychiatric: Mood and Affect: Mood normal. Behavior: Behavior normal. ASSESSMENT/PLAN: 1. Laceration of index finger of left hand without complication, initial encounter - ICD9: 883.0, ICD10: S61.211A Tdap updated- 8 years out, chuck shelf is mechanism of injury Wash with dial Cover when out and open when home Follow up with [facility] provider as needed or to close case - TDAP VACCINE, AGE 7+ YR (ADACEL, BOOSTRIX) Sherry Ceballos APRN.STEFAN [facility] 07-16-2023 Instructions Sherry Ceballos APRN.STEFAN - 07/16/2023 2:37 PM EST ASSESSMENT/PLAN: 1. Laceration of index finger of left hand without complication, initial encounter - ICD9: 883.0, ICD10: S61.211A Tdap updated- 8 years out, chuck shelf is mechanism of injury Wash with dial Cover when out and open when home Follow up with [facility] provider as needed or to close case - TDAP VACCINE, AGE 7+ YR (ADACEL, BOOSTRIX) Sherry Ceballos APRN.CLINICAL SUPERVISOR documented in this encounter [facility] 07-16-2023 History of Presen t illness Narrative This note was created using SchoolMintriter. Subjective Leny Ken is a 27 year old female. This 27 year old female presents to [facility] with flap cut, superficial to left index finger x 3 days, needs tetanus, started [facility] clain at work but has not been seen, pt is DM I. Pt is in NAD. Last tetanus 09/07/2015. The history is provided by the patient. Review of Systems Constitutional: Negative for activity change, appetite change, chills, diaphoresis, fatigue and fever. Respiratory: Negative for shortness of breath. Cardiovascular: Negative for chest pain. Gastrointestinal: Negative for abdominal pain, diarrhea, nausea and vomiting. Musculoskeletal: Negative for arthralgias, myalgias, neck pain and neck stiffness. Skin: Positive for wound. Left index finger, superficial flap cut, on chuck metal shelving, x 3 days ago Allergic/Immunologic: Positive for immunocompromised state. DM I Hematological: Does not bruise/bleed easily. Psychiatric/Behavioral: Negative. Objective BP 125/84 (BP Site: Right Arm, BP Position: Sitting, BP Cuff Size: Large Adult) Pulse 91 Temp 36.6 C (97.9 F) (Oral) Resp 16 LMP 08/05/2017 (Within Weeks) SpO2 100% PAST MEDICAL HISTORY Diagnosis Date Diabetes mellitus without mention of complication diagnosed 11/2005 Dysmenorrhea Eating disorder 02/25/2018 Binge eating Mixed hyperlipidemia Von Willebrand's disease (HCC) Current Outpatient Medications on File Prior to Visit Medication Sig dextroamphetamine-amphetamine (ADDERALL) 20 mg tablet Take 1 tablet by mouth three times a day for 30 days. [START ON 07/20/2023] dextroamphetamine-amphetamine (ADDERALL) 20 mg tablet Take 1 tablet by mouth three times a day for 30 days. Do not start before July 20, 2023. dextroamphetamine-amphetamine (ADDERALL) 20 mg tablet Take 1 tablet by mouth three times a day for 30 days. Do not start before June 20, 2023. insulin lispro (HUMALOG KWIKPEN INSULIN) 100 unit/mL INJECT 1 UNIT PER 7 GRAMS OF CARBOHYDRATE, UP TO 40 UNITS DAILY insulin glargine (LANTUS U-100 INSULIN) 100 unit/mL injection Inject 27 units QHS and as directed Norethin Skinny-Eth Estrad-FE 1 mg-20 mcg (21)/75 mg (7) per tablet Take 1 tablet by mouth as directed. atorvastatin (LIPITOR) 20 mg tablet Take 1 tablet by mouth daily at bedtime. Insulin Syringe-Needle U-100 1/2 mL 29 syrg Injects once per day. insulin needles, DISPOSABLE, (BD INSULIN PEN NEEDLE UF) 31 X 5/16 ndle Injects 4 times per day glucagon, human recombinant, (GLUCAGON EMERGENCY KIT, HUMAN,) 1 mg injection Inject 1 mg intramuscularly as directed. For severe hypoglycemia blood sugar diagnostic (Moments.meTOUCH ULTRA TEST) test strip Use as instructed. Tests 4 times per day No current facility-administered medications on file prior to visit. Physical Exam Vitals and nursing note reviewed. Constitutional: General: She is not in acute distress. Appearance: Normal appearance. She is not ill-appearing, toxic-appearing or diaphoretic. HENT: Head: Normocephalic and atraumatic. Cardiovascular: Rate and Rhythm: Normal rate. Pulmonary: Effort: Pulmonary effort is normal. Abdominal: Palpations: Abdomen is soft. Musculoskeletal: General: Normal range of motion. Skin: General: Skin is warm. Capillary Refill: Capillary refill takes less than 2 seconds. Findings: No erythema. Comments: Left index finger flap laceration, clean, no appreciated infection, no bleeding or discharge, minimal swelling Neurological: Mental Status: She is alert and oriented to person, place, and time. Psychiatric: Mood and Affect: Mood normal. Behavior: Behavior normal. ASSESSMENT/PLAN: 1. Laceration of index finger of left hand without complication, initial encounter - ICD9: 883.0, ICD10: S61.211A Tdap updated- 8 years out, chuck shelf is mechanism of injury Wash with dial Cover when out and open when home Follow up with [facility] provider as needed or to close case - TDAP VACCINE, AGE 7+ YR (ADACEL, BOOSTRIX) Sherry Ceballos APRN.CLINICAL SUPERVISOR documented in this encounter [facility] 05-22-2023 Note HNO ID: [id number] Author: PERRI KRAUS MD Service: ? Author Type: Physician Type: Progress Notes Filed: 05/22/2023 07:39 Note Text: Subjective HPI Patient here for follow-up, complaining of persistent discomfort in her wrists as well as into her hands bilaterally. Had an EMG done that showed positive, moderate carpal tunnel bilaterally. Has not had lab to exclude secondary causes. Will do that now she is of course diabetic, type I, control has been quite good over the last few months. If the labs are unremarkable we will probably recommend she go see orthopedics Additionally attention deficit, well-controlled without any major issues or problems, compliant with regimen of care. Review of Systems Respiratory: Negative for cough, hemoptysis and sputum production. Cardiovascular: Negative for chest pain, palpitations and orthopnea. Objective Physical Exam Cardiovascular: Rate and Rhythm: Normal rate and regular rhythm. Pulses: Normal pulses. Heart sounds: Normal heart sounds. Pulmonary: Effort: Pulmonary effort is normal. Breath sounds: Normal breath sounds. ASSESSMENT/PLAN: 1. Attention deficit hyperactivity disorder (ADHD), combined type - ICD9: 314.01, ICD10: F90.2 (primary diagnosis) - DEXTROAMPHETAMINE-AMPHETAMINE 20 MG TABLET - DEXTROAMPHETAMINE-AMPHETAMINE 20 MG TABLET - DEXTROAMPHETAMINE-AMPHETAMINE 20 MG TABLET 2. Bilateral carpal tunnel syndrome - ICD9: 354.0, ICD10: G56.03 - CELINA BLOOD - C-REACTIVE PROTEIN (CRP) - FOLATE SERUM - RHEUMATOID FACTOR BL - VITAMIN B12 BLOOD - TSH BLD - SED RATE WESTERGREN - XR HAND 2V PA/LAT BILATERAL 3. Uncontrolled type 2 diabetes mellitus with hyperglycemia (HCC) - ICD9: 250.02, ICD10: E11.65 - ALBUMIN/CREAT RATIO RND UR - HGB A1C - INSULIN LISPRO (U-100) 100 UNIT/ML SUBCUTANEOUS PEN Preri Kraus MD [facility] 05-21-2023 Note HNO ID: [id number] Author: CYN FRANCO RT(R) Service: ? Author Type: Technologist Type: Progress Notes Filed: 05/21/2023 14:04 Note Text: Radiology Service Progress Note PATIENT NAME: Leny Ken DATE OF SERVICE: May 21, 2023 TIME: 2:02 PM PATIENT IDENTITY VERIFICATION COMPLETED USING TWO (2) IDENTIFIERS: Name and Date of confirmed by patient verbally. FALL SCREENING: Has the patient had 2 falls in the last year or 1 fall with injury or currently using an Ambulatory Assistive Device (Walker, Cane, Wheelchair, Crutches, etc.)? No PATIENT GENDER DATA: Female. status: : No status: NO. PATIENT RELEVANT IMPLANT DATA REVIEWED: Not Applicable RADIOLOGY DEPARTMENT: General X-ray: Exam(s) Completed: Upper Extremity X-Ray(s): Hand, bilateral PERIPHERAL IV DATA: Not applicable SIGNED BY: RT Logan(R) May 21, 2023 2:02 PM [facility] 02-26-2023 Miscellaneous Notes Left message advising patient that script has been sent to new pharmacy as requested. Kiki Rodrigez MA Pt received paper scripts for her Adderall. She is out of town until Thursday in [place] and brought the scripts to [facility] in [place]. They have the script but are asking it be electronically sent since this is not her typical pharmacy. [facility] [address] [place] Order placed & pharmacy updated for review. documented in this encounter [facility] 02-23-2023 Note HNO ID: [id number] Author: Perri Kraus MD Service: ? Author Type: Physician Type: Progress Notes Filed: 02/23/2023 7:34 AM Note Text: Subjective HPI Follow-up for attention deficit disorder, doing very well without major issues or problems, medications are relatively effective, no side effects reported. Additionally in regards to her diabetes she feels that since she is monitoring with a continuous glucose monitor it has gotten much better Review of Systems Respiratory: Negative for cough, hemoptysis and sputum production. Cardiovascular: Negative for chest pain, palpitations and orthopnea. Objective Physical Exam Cardiovascular: Rate and Rhythm: Normal rate and regular rhythm. Pulses: Normal pulses. Heart sounds: Normal heart sounds. Pulmonary: Effort: Pulmonary effort is normal. Breath sounds: Normal breath sounds. ASSESSMENT/PLAN: 1. Attention deficit hyperactivity disorder (ADHD), combined type - ICD9: 314.01, ICD10: F90.2 (primary diagnosis) - DEXTROAMPHETAMINE-AMPHETAMINE 20 MG TABLET - DEXTROAMPHETAMINE-AMPHETAMINE 20 MG TABLET - DEXTROAMPHETAMINE-AMPHETAMINE 20 MG TABLET 2. Uncontrolled type 2 diabetes mellitus with hyperglycemia (HCC) - ICD9: 250.02, ICD10: E11.65 - Controlled - Continue current medications - HB A1C B/O Perri Kraus MD [facility] 01-12-2023 Miscellaneous Notes Pt would like PCP to manage diabetes. Almost out of Humalog & Lantus. Last A1C: 04/18/22 6.8 Pt changing insurance; will set up follow up in 1 month for all refills. documented in this encounter [facility] 12-29-2022 Miscellaneous Notes Left message confirming dosage as noted. Kiki Rodrigez MA 20 mg tablets , 1 1/2 tabs 3 times a day So she will be able to get 30 mg dose 3 times a day Left message informing pharmacy that provider is out until Thursday and script will be verified at that time. Kiki Rodrigez MA This will have to wait until Thursday when Dr. Kraus returns for clarification. Mary Torrez APRN.STEFAN Regarding: Adderall 20 mg prescription Sig: Take 1.5 tablets by mouth three times daily for 30 days. Do not start before December 03, 2022. Harvey, Pharmacist (Myranda) is calling stating that's the same one she is referring to and needs to clarify this Rx Her main question is when she checked OARS the dosing is kind of all over.. it's up and then down and then back up and she's wondering if this is what the Provider intended? The Pharmacist reports the pt herself didn't realize she was prescribed to take it more than once a day -- which is how the Pharmacist said it was being prescribed last month Please contact the pharmacy back with clarification, thanks [facility] line [phone] Please verify dosing. Most recent script has different dosage from past scripts. Kiki Rodrigez MA Pharmacy is calling to verify the dosage on her adderall. Please call and clarify. [facility] in [place]. [phone]. documented in this encounter [facility] 12-02-2022 Miscellaneous Notes Spoke to patient, gave Leny the message below, She understood. No further questions. 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 Script placed in Controlled Substance cabinet. PDMP website checked and validated. All prescriptions have been APPROPRIATELY filled. No suspicious activity was identified. 12/02/2022 by aMry Torrez APRN.CLINICAL SUPERVISOR Prescription printed. Please notify patient. Mary Torrez APRN.CLINICAL SUPERVISOR Physician: Perri Kraus MD Call from patient requesting refill. Please E-Scribe Last OV: 08/30/2022 Future OV: To be scheduled Pt's insurance ended October 15, 2022. She is in the process of getting new insurance through her employer & will schedule OV then. Pt asking for Rx to be printed until this is active. Discussed with PCP, ok to refill. Requested Prescriptions Pending Prescriptions Disp Refills dextroamphetamine-amphetamine (ADDERALL) 20 mg tablet 135 tablet 0 Sig: Take 1.5 tablets by mouth three times daily for 30 days. Elizabeth Montero, RN documented in this encounter [facility] 10-07-2022 Note HNO ID: [id number] Author: Ivan Ferrera MD Service: ? Author Type: Physician Type: Progress Notes Filed: 10/07/2022 8:04 AM Note Text: History: Leny Ken, a 27 year old female seen at request Dr. Perri Chambers, presents for evaluation of zip tie traumatized R ear 08/07 at work - (walking past a cage containing them). Pain, tunnel sound at time. No hearing change. Rx'd abx. Pain resolved but feels off . Denies dizziness, drainage, nasal congestion, runny-nose, post-nasal drip. No history of noise exposure. No history of ear infections. No history of ear surgery. No history of allergies. PAST MEDICAL HISTORY Diagnosis Date Diabetes mellitus without mention of complication diagnosed 11/2005 Dysmenorrhea Eating disorder 02/25/2018 Binge eating Mixed hyperlipidemia Von Willebrand's disease (HCC) PAST SURGICAL HISTORY Procedure Laterality Date NONE PE: Alert; oriented; well-developed; no apparent distress. Normal voice; normal communication. Ears: R: Small eschar post EAC. TM clear and mobile. L: EAC free of lesions. TM clear and mobile. Assessment/Plan: R ear trauma 08/07. Reasssured otologic exam wnl other than small eschar posterior EAC c/w EAC trauma. Rec audio. F/up at time of audio. CC: Medical Decision Making: Problems: Low: Acute, uncomplicated illness or injury Risk: Low: Low risk from testing/treatment Medical Decision Making Level: 3 - Low [facility] 08-30-2022 Note HNO ID: [id number] Author: Perri Kraus MD Service: ? 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 She currently is using oral contraceptives, as she was before. Will need assessment at this point. She has never had blood clots however. Review of Systems Respiratory: Negative for cough, hemoptysis and sputum production. Cardiovascular: Negative for chest pain, palpitations and orthopnea. Objective Physical Exam Cardiovascular: Rate and Rhythm: Normal rate and regular rhythm. Pulses: Normal pulses. Heart sounds: Normal heart sounds. Pulmonary: Effort: Pulmonary effort is normal. Breath sounds: Normal breath sounds. ASSESSMENT/PLAN: 1. Hypercoagulable state (HCC) - ICD9: 289.81, ICD10: D68.59 Do the labs as have been recorded in the chart Perri Kraus MD [facility] 07-24-2022 Note HNO ID: [id number] Author: Perri Kraus MD Service: ? Author Type: Physician Type: Progress Notes Filed: 07/24/2022 1:53 PM Note Text: Subjective HPI Patient had excellently had a sharp plastic object into her right eardrum at work. She felt a 'pop' and extreme pain with some blood coming out and associated deafness. Review of Systems HENT: Positive for ear pain and hearing loss. Objective Physical Exam HENT: Right Ear: There is hemotympanum. Tympanic membrane is perforated. ASSESSMENT/PLAN: 1. Perforation of right tympanic membrane - ICD9: 384.20, ICD10: H72.91 - LEVOFLOXACIN 500 MG TABLET - CONSULT TO ENT Perri Kraus MD [facility] 07-24-2022 History of Presen t illness Narrative Subjective HPI Patient had excellently had a sharp plastic object into her right eardrum at work. She felt a 'pop' and extreme pain with some blood coming out and associated deafness. Review of Systems HENT: Positive for ear pain and hearing loss. Objective Physical Exam HENT: Right Ear: There is hemotympanum. Tympanic membrane is perforated. ASSESSMENT/PLAN: 1. Perforation of right tympanic membrane - ICD9: 384.20, ICD10: H72.91 - LEVOFLOXACIN 500 MG TABLET - CONSULT TO ENT Perri Kraus MD documented in this encounter [facility] 07-22-2022 Note HNO ID: [id number] Author: Perri Kraus MD Service: ? Author Type: Physician Type: Progress Notes Filed: 07/23/2022 7:25 AM Note Text: Subjective HPI Leny Ken is a 26 year old female who presents for follow up of ADHD. She continues to have difficulty focusing and completing tasks with current dose of Adderall, although she has noticed some improvement since starting Adderall. She has been taking 20 mg twice daily (didn't take 1 1/2 tablets in AM as prescribed). No medication side effects. Review of Systems Psychiatric/Behavioral: Negative for depression. The patient is nervous/anxious. Objective Physical Exam Vitals reviewed. Cardiovascular: Rate and Rhythm: Normal rate and regular rhythm. Heart sounds: Normal heart sounds. Pulmonary: Effort: Pulmonary effort is normal. Breath sounds: Normal breath sounds. Psychiatric: Mood and Affect: Mood is anxious. ASSESSMENT/PLAN: 1. Attention deficit hyperactivity disorder (ADHD), combined type - ICD9: 314.01, ICD10: F90.2 - Patient continues to have difficulty focusing and completing tasks. Will increase Adderall to 20 mg 3 times daily. - PDMP website checked and validated. All prescriptions have been APPROPRIATELY filled. No suspicious activity was identified. 07/22/2022 by Mary Torrez APRN.CLINICAL SUPERVISOR - DEXTROAMPHETAMINE-AMPHETAMINE 20 MG TABLET - DEXTROAMPHETAMINE-AMPHETAMINE 20 MG TABLET - DEXTROAMPHETAMINE-AMPHETAMINE 20 MG TABLET - Follow up in 3 months Mary Trorez APRN.CLINICAL SUPERVISOR Attending Note I have personally performed a face to face assessment of the patient and have reviewed the [facility] note. I performed a substantive portion of the visit including all aspects of the following. My quinonez findings include: Here for follow-up, history of attention deficit, appears the dosing may not be adequate for her. Will trial 40 mg in the morning and 20 at noon time. Other additions or changes: None Signature: Perri Kraus MD Date: 07/23/2022 Time: 7:24 AM [facility] 07-11-2022 Miscellaneous Notes Awaiting PFA Latonya Hatfield Patient missed appt. Please reschedule and schedule labs prior to appt. Mary Torrez APRN.CNP documented in this encounter [facility] 06-05-2022 Miscellaneous Notes PDMP website checked and validated. All prescriptions have been APPROPRIATELY filled. No suspicious activity was identified. 06/05/2022 by Mary Torrez APRN.CNP Patient phones requesting refills as follows: Pt not able to pick out Rx at [facility]. Requesting to be sent to [facility]. (Verified it's available there). Last OV: 04/01/22 Next OV: 07/01/22 Requested Prescriptions Pending Prescriptions Disp Refills Amphetamine-Dextroamphetamine (ADDERALL) 30 mg tablet 30 tablet 0 Sig: Take 1 tablet by mouth once daily for 30 days. Please review and advise. Elizabeth Montero RN documented in this encounter [facility] 04-28-2022 Miscellaneous Notes Patient advised below results and recommendations. Verbalized understanding. No further actions needed at this time. Order printed. 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 Akiko Culp MA EMG confirms carpal tunnel. Cock up splint ordered. Mary Torrez APRN.CNP documented in this encounter [facility] 04-26-2022 History of Presen t illness Narrative UNIVERSAL PROTOCOL / SAFETY CHECKLIST Procedure to be Performed: EMG Sign In: A Moment of CARE was completed. Personnel directly involved with the procedure wore the appropriate PPE (Personal Protective Equipment). Patient/Surrogate Stated/Verified: PATIENT VERIFIED(optional for EMERGENT procedures): Patient name, Date of , Relevant allergies, and The intended procedure Time Out Communication: Intended patient and procedure match the source documents. Correct side/site marked and visible. Sign Out: SIGN OUT (optional for EMERGENT procedures): Post-procedure follow-up management communicated and Plan of Care Visit completed when applicable. MD Flower Desouza EMG Tech documented in this encounter [facility] 04-02-2022 History of Presen t illness Narrative Subjective HPI Today with a complaint of bilateral upper extremity and lower extremity sensory alteration. Present in certain situations but does resolve with some positioning. The sensation is starting proximally at the shoulder and the hip all the way down to the extremity hands and feet. Present for few weeks. No muscular weakness whatsoever. She works quite hard lifting multiple boxes at work. Notes that her work has been more physical the last few weeks Also notes that she is due for her refills soon. These have been helping her significantly. Review of Systems Respiratory: Negative for cough, hemoptysis and sputum production. Cardiovascular: Negative for chest pain, palpitations and orthopnea. Genitourinary: Negative for dysuria, frequency and urgency. Objective Physical Exam ASSESSMENT/PLAN: 1. Bilateral arm numbness and tingling while sleeping - ICD9: 782.0, ICD10: R20.0, R20.2 (primary diagnosis) - EMG(NEURO/NI) 2. Attention deficit hyperactivity disorder (ADHD), combined type - ICD9: 314.01, ICD10: F90.2 - DEXTROAMPHETAMINE-AMPHETAMINE 30 MG TABLET - DEXTROAMPHETAMINE-AMPHETAMINE 30 MG TABLET - DEXTROAMPHETAMINE-AMPHETAMINE 30 MG TABLET - DEXTROAMPHETAMINE-AMPHETAMINE 20 MG TABLET - DEXTROAMPHETAMINE-AMPHETAMINE 20 MG TABLET - DEXTROAMPHETAMINE-AMPHETAMINE 20 MG TABLET Perri Kraus MD documented in this encounter [facility] 12-24-2021 History of Presen t illness Narrative Subjective HPI Leny Ken is a 26 year old female who presents for follow up of ADHD. She states increased dose of Adderall in AM has helped with focus, although she does still have some difficulty focusing some days. 10 mg PM dose doesn't seem to be effective at all. Sleep and appetite are good. Review of Systems Psychiatric/Behavioral: Negative for depression. The patient is not nervous/anxious and does not have insomnia. Objective Physical Exam Vitals reviewed. Constitutional: Appearance: Normal appearance. Cardiovascular: Rate and Rhythm: Normal rate and regular rhythm. Heart sounds: Normal heart sounds. Pulmonary: Effort: Pulmonary effort is normal. Breath sounds: Normal breath sounds. Psychiatric: Mood and Affect: Mood is anxious. ASSESSMENT/PLAN: 1. Attention deficit hyperactivity disorder (ADHD), combined type - ICD9: 314.01, ICD10: F90.2 - Some improvement with increased dose of Adderall. Continue 30 mg in AM, increase PM dose from 10 mg to 20 mg. - PDMP website checked and validated. All prescriptions have been APPROPRIATELY filled. No suspicious activity was identified. 12/24/2021 by Perri Kraus MD - DEXTROAMPHETAMINE-AMPHETAMINE 30 MG TABLET - DEXTROAMPHETAMINE-AMPHETAMINE 30 MG TABLET - DEXTROAMPHETAMINE-AMPHETAMINE 30 MG TABLET - DEXTROAMPHETAMINE-AMPHETAMINE 20 MG TABLET - DEXTROAMPHETAMINE-AMPHETAMINE 20 MG TABLET - DEXTROAMPHETAMINE-AMPHETAMINE 20 MG TABLET - Follow up in 3 months Mary Torrez APRN.CLINICAL SUPERVISOR Attending Note I have personally performed a face to face assessment of the patient and have reviewed the [facility] note. I performed a substantive portion of the visit including all aspects of the following. My quinonez findings include: Appears to have reasonably effective response to the medication, patient does have a rather extended day and the dosing appears to be wearing out earlier, first dose starting at 6 AM and she appears to probably need a second dose by about 10 but is delaying it all the way to 2 PM and may just be seeing a less than desirable result. She will either require an extra 10 mg to be used at that more appropriate time, 10 AM, or used 20 mg at about noon. Other additions or changes: None Signature: Perri Kraus MD Date: 12/25/2021 Time: 7:11 AM documented in this encounter [facility] 10-24-2021 Miscellaneous Notes Patient phones requesting refills as follows: Last OV 09/23/21 Next OV 12/24/21 Pending Prescriptions Disp Refills DEXTROAMPHETAMINE-AMPHETAMINE 30 MG TABLET 30 tablet 0 Sig: Take 1 tablet by mouth once daily for 30 days. MAE Class: C-II ACE: No DEXTROAMPHETAMINE-AMPHETAMINE 10 MG TABLET 30 tablet 0 Sig: Take 1 tablet by mouth once daily for 30 days. MAE Class: C-II ACE: No DEXTROAMPHETAMINE-AMPHETAMINE 10 MG TABLET 30 tablet 0 Sig: Take 1 tablet by mouth once daily for 30 days. Do not start before November 23, 2021. MAE Class: C-II DEXTROAMPHETAMINE-AMPHETAMINE 30 MG TABLET 30 tablet 0 Sig: Take 1 tablet by mouth once daily for 30 days. Do not start before November 23, 2021. MAE Class: C-II Please review and advise. Elizabeth Montero RN documented in this encounter [facility] 09-26-2021 Miscellaneous Notes Patient is requesting to change script to [facility] documented in this encounter [facility] 09-23-2021 History of Presen t illness Narrative Subjective HPI Follow-up for attention deficit seems to be responding to treatment. Appears to need at least 2 tablets in the morning and I do not feel even that may be enough. We will increase the morning dose to 30 mg and add another 10 mg at noontime. We will trial this for a month, anticipate possibly increasing the dose further overall she does not feel any side effects, feels more normal. Sleep is improved. Review of Systems Respiratory: Negative for cough, hemoptysis and sputum production. Cardiovascular: Negative for chest pain, palpitations and orthopnea. Objective Physical Exam Cardiovascular: Rate and Rhythm: Normal rate and regular rhythm. Pulses: Normal pulses. Heart sounds: Normal heart sounds. Pulmonary: Effort: Pulmonary effort is normal. Breath sounds: Normal breath sounds. ASSESSMENT/PLAN: 1. Attention deficit hyperactivity disorder (ADHD), combined type - ICD9: 314.01, ICD10: F90.2 - DEXTROAMPHETAMINE-AMPHETAMINE 30 MG TABLET - DEXTROAMPHETAMINE-AMPHETAMINE 10 MG TABLET Perri Kraus MD documented in this encounter [facility] 04-29-2021 History of Past i llness Narrative Problem Noted Date Resolved Date Von Willebrand's disease 04/29/2021 023 Eating disorder 02/25/2018 04/29/2021 Overview: Binge eating Hypercholesterolemia 05/12/2016 04/29/2021 Chest pain of uncertain etiology 04/30/2014 04/29/2021 PERONEAL TENDINITIS 12/27/2013 04/29/2021 PAIN IN LIMB/ANKLE/FOOT 12/27/2013 04/29/20 21 Depressive disorder, not elsewhere classified 04/29/2021 Psychic factors associated w ith diseases classified elsewhere 02/18/2012 04/29/2021 Anxiety 12/01/2011 04/29/2021 documented as of this encounter (statuses as of 08/28/2022) [facility] History of Past illness Narrative* Problem Noted Date Diagnosed Date Resolved Date Von Willebrand's disease 04/29/2021 Eating disorder 02/25/2018 04/29/2021 Overview: Binge eating Hypercholesterolemia 05/12/2016 021 Chest pain of uncertain etiology 04/30/2014 04/29/2021 PERONEAL TENDINITIS 12/27/2013 04/29/20 21 PAIN IN LIMB/ANKLE/FOOT 12/27/201304/17 Depressive disorder, not elsewhere classified 02/18/20 12 04/29/2021 Psychic factors associated w ith diseases classified elsewhere 02/18/2012 04/29/2021 Anxiety 12/01/2011 04/29/2021 documented as of this encounter (statuses as of 12/03/2022) [facility] History of Past illness Narrative* Problem Noted Date Diagnosed Date Resolved Date Von Willebrand's disease 04/29/2021 Eating disorder 02/25/2018 04/29/2021 Overview: Binge eating Hypercholesterolemia 05/12/2016 021 Chest pain of uncertain etiology 04/30/2014 04/29/2021 PERONEAL TENDINITIS 12/27/2013 04/29/20 21 PAIN IN LIMB/ANKLE/FOOT 12/27/201304/17 Depressive disorder, not elsewhere classified 02/18/2004/29/2021 Psychic factors associated w ith diseases classified elsewhere 02/18/2012 04/29/2021 Anxiety 12/01/2011 04/29/2021 documented as of this encounter (statuses as of 12/29/2022) [facility] History of Past illness Narrative* Problem Noted Date Diagnosed Date Resolved Date Von Willebrand's disease 04/29/2021 Eating disorder 02/25/2018 04/29/2021 Overview: Binge eating Hypercholesterolemia 05/12/2016 021 Chest pain of uncertain etiology 04/30/2014 04/29/2021 PERONEAL TENDINITIS 12/27/2013 04/29/20 21 PAIN IN LIMB/ANKLE/FOOT 12/27/201304/17 Depressive disorder, not elsewhere classified 02/18/2004/29/2021 Psychic factors associated w ith diseases classified elsewhere 02/18/2012 04/29/2021 Anxiety 12/01/2011 04/29/2021 documented as of this encounter (statuses as of 01/13/2023) [facility] History of Past illness Narrative* Problem Noted Date Diagnosed Date Resolved Date Von Willebrand's disease 04/29/2021 Eating disorder 02/25/2018 04/29/2021 Overview: Binge eating Hypercholesterolemia 05/12/2016 021 Chest pain of uncertain etiology 04/30/2014 04/29/2021 PERONEAL TENDINITIS 12/27/2013 04/29/20 21 PAIN IN LIMB/ANKLE/FOOT 12/27/201304/17 Depressive disorder, not elsewhere classified 02/18/20 12 04/29/2021 Psychic factors associated w ith diseases classified elsewhere 02/18/2012 04/29/2021 Anxiety 12/01/2011 04/29/2021 documented as of this encounter (statuses as of 02/26/2023) [facility] History of Past illness Narrative* Problem Noted Date Diagnosed Date Resolved Date Von Willebrand's disease 04/29/2021 Eating disorder 02/25/2018 04/29/2021 Overview: Binge eating Hypercholesterolemia 05/12/2016 021 Chest pain of uncertain etiology 04/30/2014 04/29/2021 PERONEAL TENDINITIS 12/27/2013 04/29/20 21 PAIN IN LIMB/ANKLE/FOOT 12/27/201304/17 Depressive disorder, not elsewhere classified 02/18/2004/29/2021 Psychic factors associated w ith diseases classified elsewhere 02/18/2012 04/29/2021 Anxiety 12/01/2011 04/29/2021 documented as of this encounter (statuses as of 07/17/2023) [facility] History of Past illness Narrative* Problem Noted Date Resolved Date Eating disorder 02/25/2018 04/29/2021 Overview: Binge eating Hypercholesterolemia 05/12/2016 04/29/2021 Chest pain of uncertain etiology 04/30/2014 04/29/2021 PERONEAL TENDINITIS 12/27/2013 04/29/2021 PAIN IN LIMB/ANKLE/FOOT 12/27/2013 04/29/20 21 Depressive disorder, not elsewhere classified 04/29/2021 Psychic factors associated w ith diseases classified elsewhere 02/18/2012 04/29/2021 Anxiety 12/01/2011 04/29/2021 documented as of this encounter (statuses as of 09/24/2021) [facility] History of Past illness Narrative* Problem Noted Date Resolved Date Eating disorder 02/25/2018 04/29/2021 Overview: Binge eating Hypercholesterolemia 05/12/2016 04/29/2021 Chest pain of uncertain etiology 04/30/2014 04/29/2021 PERONEAL TENDINITIS 12/27/2013 04/29/2021 PAIN IN LIMB/ANKLE/FOOT 12/27/2013 04/29/20 21 Depressive disorder, not elsewhere classified 04/29/2021 Psychic factors associated w ith diseases classified elsewhere 02/18/2012 04/29/2021 Anxiety 12/01/2011 04/29/2021 documented as of this encounter (statuses as of 09/26/2021) [facility] History of Past illness Narrative* Problem Noted Date Resolved Date Eating disorder 02/25/2018 04/29/2021 Overview: Binge eating Hypercholesterolemia 05/12/2016 04/29/2021 Chest pain of uncertain etiology 04/30/2014 04/29/2021 PERONEAL TENDINITIS 12/27/2013 04/29/2021 PAIN IN LIMB/ANKLE/FOOT 12/27/2013 04/29/20 21 Depressive disorder, not elsewhere classified 04/29/2021 Psychic factors associated w ith diseases classified elsewhere 02/18/2012 04/29/2021 Anxiety 12/01/2011 04/29/2021 documented as of this encounter (statuses as of 10/24/2021) [facility] History of Past illness Narrative* Problem Noted Date Resolved Date Eating disorder 02/25/2018 04/29/2021 Overview: Binge eating Hypercholesterolemia 05/12/2016 04/29/2021 Chest pain of uncertain etiology 04/30/2014 04/29/2021 PERONEAL TENDINITIS 12/27/2013 04/29/2021 PAIN IN LIMB/ANKLE/FOOT 12/27/2013 04/29/20 21 Depressive disorder, not elsewhere classified 04/29/2021 Psychic factors associated w ith diseases classified elsewhere 02/18/2012 04/29/2021 Anxiety 12/01/2011 04/29/2021 documented as of this encounter (statuses as of 12/13/2021) [facility] History of Past illness Narrative* Problem Noted Date Resolved Date Eating disorder 02/25/2018 04/29/2021 Overview: Binge eating Hypercholesterolemia 05/12/2016 04/29/2021 Chest pain of uncertain etiology 04/30/2014 04/29/2021 PERONEAL TENDINITIS 12/27/2013 04/29/2021 PAIN IN LIMB/ANKLE/FOOT 12/27/2013 04/29/20 21 Depressive disorder, not elsewhere classified 04/29/2021 Psychic factors associated w ith diseases classified elsewhere 02/18/2012 04/29/2021 Anxiety 12/01/2011 04/29/2021 documented as of this encounter (statuses as of 12/25/2021) [facility] History of Past illness Narrative* Problem Noted Date Resolved Date Eating disorder 02/25/2018 04/29/2021 Overview: Binge eating Hypercholesterolemia 05/12/2016 04/29/2021 Chest pain of uncertain etiology 04/30/2014 04/29/2021 PERONEAL TENDINITIS 12/27/2013 04/29/2021 PAIN IN LIMB/ANKLE/FOOT 12/27/2013 04/29/20 21 Depressive disorder, not elsewhere classified 04/29/2021 Psychic factors associated w ith diseases classified elsewhere 02/18/2012 04/29/2021 Anxiety 12/01/2011 04/29/2021 documented as of this encounter (statuses as of 03/14/2022) [facility] of Past illness Narrative* Problem Noted Date Resolved Date Eating disorder 02/25/2018 04/29/2021 Overview: Binge eating Hypercholesterolemia 05/12/2016 04/29/2021 Chest pain of uncertain etiology 04/30/2014 04/29/2021 PERONEAL TENDINITIS 12/27/2013 04/29/2021 PAIN IN LIMB/ANKLE/FOOT 12/27/2013 04/29/20 21 Depressive disorder, not elsewhere classified 04/29/2021 Psychic factors associated w ith diseases classified elsewhere 02/18/2012 04/29/2021 Anxiety 12/01/2011 04/29/2021 documented as of this encounter (statuses as of 04/02/2022) [facility] History of Past illness Narrative* Problem Noted Date Resolved Date Eating disorder 02/25/2018 04/29/2021 Overview: Binge eating Hypercholesterolemia 05/12/2016 04/29/2021 Chest pain of uncertain etiology 04/30/2014 04/29/2021 PERONEAL TENDINITIS 12/27/2013 04/29/2021 PAIN IN LIMB/ANKLE/FOOT 12/27/2013 04/29/20 21 Depressive disorder, not elsewhere classified 04/29/2021 Psychic factors associated w ith diseases classified elsewhere 02/18/2012 04/29/2021 Anxiety 12/01/2011 04/29/2021 documented as of this encounter (statuses as of 04/26/2022) [facility] of Past illness Narrative* Problem Noted Date Resolved Date Eating disorder 02/25/2018 04/29/2021 Overview: Binge eating Hypercholesterolemia 05/12/2016 04/29/2021 Chest pain of uncertain etiology 04/30/2014 04/29/2021 PERONEAL TENDINITIS 12/27/2013 04/29/2021 PAIN IN LIMB/ANKLE/FOOT 12/27/2013 04/29/20 21 Depressive disorder, not elsewhere classified 04/29/2021 Psychic factors associated w ith diseases classified elsewhere 02/18/2012 04/29/2021 Anxiety 12/01/2011 04/29/2021 documented as of this encounter (statuses as of 04/28/2022) [facility] of Past illness Narrative* Problem Noted Date Resolved Date Eating disorder 02/25/2018 04/29/2021 Overview: Binge eating Hypercholesterolemia 05/12/2016 04/29/2021 Chest pain of uncertain etiology 04/30/2014 04/29/2021 PERONEAL TENDINITIS 12/27/2013 04/29/2021 PAIN IN LIMB/ANKLE/FOOT 12/27/2013 04/29/20 21 Depressive disorder, not elsewhere classified 04/29/2021 Psychic factors associated w ith diseases classified elsewhere 02/18/2012 04/29/2021 Anxiety 12/01/2011 04/29/2021 documented as of this encounter (statuses as of 06/05/2022) [facility] of Past illness Narrative* Problem Noted Date Resolved Date Eating disorder 02/25/2018 04/29/2021 Overview: Binge eating Hypercholesterolemia 05/12/2016 04/29/2021 Chest pain of uncertain etiology 04/30/2014 04/29/2021 PERONEAL TENDINITIS 12/27/2013 04/29/2021 PAIN IN LIMB/ANKLE/FOOT 12/27/2013 04/29/20 21 Depressive disorder, not elsewhere classified 04/29/2021 Psychic factors associated w ith diseases classified elsewhere 02/18/2012 04/29/2021 Anxiety 12/01/2011 04/29/2021 documented as of this encounter (statuses as of 06/20/2022) [facility] of Past illness Narrative* Problem Noted Date Resolved Date Eating disorder 02/25/2018 04/29/2021 Overview: Binge eating Hypercholesterolemia 05/12/2016 04/29/2021 Chest pain of uncertain etiology 04/30/2014 04/29/2021 PERONEAL TENDINITIS 12/27/2013 04/29/2021 PAIN IN LIMB/ANKLE/FOOT 12/27/2013 04/29/20 21 Depressive disorder, not elsewhere classified 04/29/2021 Psychic factors associated w ith diseases classified elsewhere 02/18/2012 04/29/2021 Anxiety 12/01/2011 04/29/2021 documented as of this encounter (statuses as of 07/11/2022) [facility] of Past illness Narrative* Problem Noted Date Resolved Date Eating disorder 02/25/2018 04/29/2021 Overview: Binge eating Hypercholesterolemia 05/12/2016 04/29/2021 Chest pain of uncertain etiology 04/30/2014 04/29/2021 PERONEAL TENDINITIS 12/27/2013 04/29/2021 PAIN IN LIMB/ANKLE/FOOT 12/27/2013 04/29/20 21 Depressive disorder, not elsewhere classified 04/29/2021 Psychic factors associated w ith diseases classified elsewhere 02/18/2012 04/29/2021 Anxiety 12/01/2011 04/29/2021 documented as of this encounter (statuses as of 07/24/2022) [facility] note* Diagnosis Attention deficit hyperactivity disorder (ADHD), combined type- Primary [facility]* Diagnosis Attention deficit hyperactivity disorder (ADHD), combined type [facility]* Diagnosis Attention deficit hyperactivity disorder (ADHD), combined type [facility] Diagnosis Medication management Encounter for long-term (current) use of other medications Mixed hyperlipidemia documented in this encounter [facility] note* Diagnosis Attention deficit hyperactivity disorder (ADHD), combined type [facility]* Diagnosis DKA (diabetic ketoacidosis) (HCC) Type II or unspecified type diabetes mellitus with ketoacidosis, not stated as uncontrolled Mixed hyperlipidemia [facility]* Diagnosis Bilateral arm numbness and tingling while sleeping- Primary Attention deficit hyperactivity disorder (ADHD), combined type [facility]* Diagnosis Carpal tunnel syndrome, bilateral upper limbs- Primary Bilateral arm numbness and tingling while sleeping Other disturbances of skin sensation [facility]* Diagnosis Bilateral carpal tunnel syndrome- Primary Carpal tunnel syndrome [facility]* Diagnosis Attention deficit hyperactivity disorder (ADHD), combined type [facility]* Diagnosis DKA (diabetic ketoacidosis) (HCC) Type II or unspecified type diabetes mellitus with ketoacidosis, not stated as uncontrolled Mixed hyperlipidemia [facility]* Diagnosis Special screening examination for viral disease- Primary Special screening examination for unspecified viral disease Screening for HIV (human immunodeficiency virus) Special screening examination for other specified viral diseases Vitamin D deficiency Unspecified vitamin D deficiency Mixed hyperlipidemia Uncontrolled type 2 diabetes mellitus with hyperglycemia (HCC) documented in this encounter [facility] note* Diagnosis Perforation of right tympanic membrane- Primary Perforation of tympanic membrane, unspecified [facility]* Diagnosis Thrombocytosis- Primary Essential thrombocythemia [facility] Diagnosis Attention deficit hyperactivity disorder (ADHD), combined type [facility] Diagnosis Laceration of index finger of left hand without complication, initial encounter- Primary [facility] Out[facility] Procedure (Routine) - Pending Review Specialty Diagnoses / Procedures Referred By Arleth waller Referred To [facility] Diagnoses Bilateral arm numbness and tingling while sleeping Procedures EMG(NEURO/NI) NERVE CONDUCTION STUDIES 9-10 STUDIES Perri Kraus MD [address] [place] [address] [facility] [address] [place] [address] Referral ID Status Reason Start Date Expiration Date Visits Requested Visits Authorized [id number] Pending Review Auto-Generat ed Referral 2 04/01/2023 1 1 [facility] Summary Purpose Family History No Family History Records FoundNo Family History Records FoundNo Family History Records Found Advance Directives No Advanced Directives Records FoundNo Advanced Directives Records FoundNo Advanced Directives Records Found Reason for Referral Specialty Diagnoses / Procedures Referred By Arleth waller Referred To Contact Ent - Otolaryngology Diagnoses Perforation of right tympanic membrane Procedures CONSULT TO ENT OFFICE/OUTPATIENT NEW HIGH MDM 60-74 MINUTES Perri Kraus MD [address] [place] [address] Referral ID Status Reason Start Date Expiration Date Visits Requested Visits Authorized [id number] Authorized PCP Requested Referral 07/24/2022 07/24/2023 1 1 Additional Source Comments Source Comments (unrecognize d section and content) In the event this informatio n is protected by the Federal Confidentiality of Alcohol and Drug Abuse Patient Records regulations: The Federal rules restrict any use of the information to criminally investigate or prosecute any alcohol or drug abuse patient.[facility] FoundationIn the event this information is protected by the Federal Confidentiality of Alcohol and Drug Abuse Patient Records regulations: The Federal rules restrict any use of the information to criminally investigate or prosecute any alcohol or drug abuse patient.[facility] FoundationIn the event this information is protected by the Federal Confidentiality of Alcohol and Drug Abuse Patient Records regulations: The Federal rules restrict any use of the information to criminally investigate or prosecute any alcohol or drug abuse patient.[facility] FoundationIn the event this information is protected by the Federal Confidentiality of Alcohol and Drug Abuse Patient Records regulations: The Federal rules restrict any use of the information to criminally investigate or prosecute any alcohol or drug abuse patient.[facility] FoundationIn the event this information is protected by the Federal Confidentiality of Alcohol and Drug Abuse Patient Records regulations: The Federal rules restrict any use of the information to criminally investigate or prosecute any alcohol or drug abuse patient.[facility] FoundationIn the event this information is protected by the Federal Confidentiality of Alcohol and Drug Abuse Patient Records regulations: The Federal rules restrict any use of the information to criminally investigate or prosecute any alcohol or drug abuse patient.[facility] FoundationIn the event this information is protected by the Federal Confidentiality of Alcohol and Drug Abuse Patient Records regulations: The Federal rules restrict any use of the information to criminally investigate or prosecute any alcohol or drug abuse patient.[facility] FoundationIn the event this information is protected by the Federal Confidentiality of Alcohol and Drug Abuse Patient Records regulations: The Federal rules restrict any use of the information to criminally investigate or prosecute any alcohol or drug abuse patient.[facility] FoundationIn the event this information is protected by the Federal Confidentiality of Alcohol and Drug Abuse Patient Records regulations: The Federal rules restrict any use of the information to criminally investigate or prosecute any alcohol or drug abuse patient.[facility] FoundationIn the event this information is protected by the Federal Confidentiality of Alcohol and Drug Abuse Patient Records regulations: The Federal rules restrict any use of the information to criminally investigate or prosecute any alcohol or drug abuse patient.[facility] FoundationIn the event this information is protected by the Federal Confidentiality of Alcohol and Drug Abuse Patient Records regulations: The Federal rules restrict any use of the information to criminally investigate or prosecute any alcohol or drug abuse patient.[facility] FoundationIn the event this information is protected by the Federal Confidentiality of Alcohol and Drug Abuse Patient Records regulations: The Federal rules restrict any use of the information to criminally investigate or prosecute any alcohol or drug abuse patient.[facility] FoundationIn the event this information is protected by the Federal Confidentiality of Alcohol and Drug Abuse Patient Records regulations: The Federal rules restrict any use of the information to criminally investigate or prosecute any alcohol or drug abuse patient.[facility] FoundationIn the event this information is protected by the Federal Confidentiality of Alcohol and Drug Abuse Patient Records regulations: The Federal rules restrict any use of the information to criminally investigate or prosecute any alcohol or drug abuse patient.[facility] FoundationIn the event this information is protected by the Federal Confidentiality of Alcohol and Drug Abuse Patient Records regulations: The Federal rules restrict any use of the information to criminally investigate or prosecute any alcohol or drug abuse patient.[facility] FoundationIn the event this information is protected by the Federal Confidentiality of Alcohol and Drug Abuse Patient Records regulations: The Federal rules restrict any use of the information to criminally investigate or prosecute any alcohol or drug abuse patient.[facility] FoundationIn the event this information is protected by the Federal Confidentiality of Alcohol and Drug Abuse Patient Records regulations: The Federal rules restrict any use of the information to criminally investigate or prosecute any alcohol or drug abuse patient.[facility] FoundationIn the event this information is protected by the Federal Confidentiality of Alcohol and Drug Abuse Patient Records regulations: The Federal rules restrict any use of the information to criminally investigate or prosecute any alcohol or drug abuse patient.[facility] FoundationIn the event this information is protected by the Federal Confidentiality of Alcohol and Drug Abuse Patient Records regulations: The Federal rules restrict any use of the information to criminally investigate or prosecute any alcohol or drug abuse patient.[facility] Reason for Visit (unrecogniz ed section and content) Reason Comments Follow Up Reason Onset Date Comments Refill Request 09/26/2021 Reason Onset Date Comments Refill Request 10/24/2021 Reason Comments Refill Request Reason Comments Rx Refills Reason Onset Date Comments EMG 04/26/2022 Specialty Diagnoses / Procedures Referred By Contvarsha t Referred To Contact [facility] Diagnoses Bilateral arm numbness and tingling while sleeping Procedures EMG(NEURO/NI) NERVE CONDUCTION STUDIES 9-10 STUDIES Perri Kraus MD [address] [place] [address] [facility] [address] [place] [address] Referral ID Status Reason Start Date Expiration Date V isits Requested Visits Authorized [id number] Closed Auto-Generate d Referral 04/01/2022 04/01/2023 1 1 Reason Comments Results Reason Onset Date Comments Refill Request 06/05/2022 Reason Comments Appointment Reason Comments Ear Pain R ear pain d/t punct ure for zip tie; felt a pop Specialty Diagnoses / Procedures Referred By Contac t Referred To Contact AUDIOLOGY Diagnoses Unspecified perforation of tympanic membrane, right ear Procedures REFERRAL TO [facility] Perri Kraus MD [address] [place] [address] Otol [facility] [address] [facility] [place] [address] Referral ID Status Reason Start Date Expiration Date V isits Requested Visits Authorized [id number] Pending Review 07/24/2022 2022 2 2 Reason Onset Date Comments Refill Request 12/02/2022 Reason Comments Medication Problem Reason Onset Date Comments Refill Request 01/12/2023 Reason Comments Laceration Left Index Finger cu t Care Teams (unrecognized sec tion and content) 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 Start Date End Date Perri Kraus MD [address] [place] [phone] PCP - General Internal Medicine 09/23/21 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 Start Date End Date Perri Kraus MD [address] [place] [phone] PCP - General Internal Medicine 09/23/21 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 Start Date End Date Perri Kraus MD [address] [place] [phone] PCP - General Internal Medicine 09/23/21 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 Start Date End Date Perri Kraus MD [address] [place] [address] PCP - General Internal Medicine 09/23/21 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 Start Date End Date Perri Kraus MD [address] [place] [address] PCP - General Internal Medicine 09/23/21 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 Start Date End Date Perri Kraus MD [address] [place] [address] PCP - General Internal Medicine 09/23/21 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 Start Date End Date Perri Kraus MD [address] [place] [address] PCP - General Internal Medicine 09/23/21 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 Start Date End Date Perri Kraus MD [address] [place] [address] PCP - General Internal Medicine 09/23/21 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 Start Date End Date Perri Kraus MD [address] [place] [address] PCP - General Internal Medicine 09/23/21 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 Start Date End Date Perri Kraus MD [address] [place] [address] PCP - General Internal Medicine 09/23/21 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 Start Date End Date Perri Kraus MD [address] [place] [address] PCP - General Internal Medicine 09/23/21 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 Start Date End Date Perri Kraus MD [address] [place] [address] PCP - General Internal Medicine 09/23/21 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 Start Date End Date Perri Kraus MD [address] [place] [address] PCP - General Internal Medicine 09/23/21 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 Start Date End Date Perri Kraus MD [address] [place] [address] PCP - General Internal Medicine 09/23/21 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 Start Date End Date Perri Kraus MD [address] [place] [address] PCP - General Internal Medicine 09/23/21 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 Start Date End Date Perri Kraus MD [address] [place] [address] PCP - General Internal Medicine 09/23/21 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 This clinical summary was aggregated from multiple sources. Caution should be exercised in using it in the provision of clinical care. This summary normalizes information from multiple sources, and as a consequence, information in this document may materially change the coding, format and clinical context of patient data. In addition, data may be omitted in some cases. CLINICAL DECISIONS SHOULD BE BASED ON THE PRIMARY CLINICAL RECORDS. [employer] [facility]. provides no warranty or guarantee of the accuracy or completeness of information in this document.
--- NOTE | 2023-07-24 06:51 | MR_ITS ---
[facility] [place] [id number] Patient Name: LENY KEN MRN: [id number] date: 1995 Sex: F Assigned Patient Location: MRI Current Patient Location: MRI Accession/Order Number: [id number] Exam Date: 07/24/2023 07:00 Report Date: 07/24/2023 14:57 At the request of: RICARDO TOLENTINO Procedure: MR knee LT wo con EXAM: MR knee LT wo con REASON FOR EXAM: Left Knee Contusion. TECHNIQUE: Multiplanar, multisequence imaging of the left knee was performed without contrast COMPARISON: Radiographs 03/28/2023. FINDINGS: Laterally, the iliotibial band, fibular collateral ligament, popliteus tendon and biceps tendon are intact. The ACL is intact. The lateral meniscus demonstrates normal morphology and signal without tear. The lateral articular cartilage is intact. Medially, the medial collateral ligament is intact. The PCL is intact. The medial meniscus demonstrates grossly normal morphology and signal without definite tear. The medial articular cartilage is intact. The extensor mechanism is intact. The patellofemoral cartilage is intact. There is mild lateral patella subluxation identified. Borderline abnormal tibial tuberosity trochlear groove interval of 2 cm. No significant edema identified in the superior lateral aspect of Hoffa's fat pad. No evidence of a patellar dislocation relocation injury. The bone marrow signal is without fracture. Trace joint effusion. The regional musculature is without muscle strain or tendon tear. MR/MR knee LT wo con IMPRESSION: 1. No acute osseous or normality. 2. Intact menisci, cruciate and collateral ligaments. 3. Possible findings of patella maltracking with borderline abnormal tibial tuberosity trochlear groove interval mild lateral patella subluxation. No evidence of acute patellar dislocation relocation injury. Electronically authenticated by: RADHA LANCE Date: 07/24/2023 14:57
== END 2023-07-24 06:47 | disposition home or self-care (01) ==
LOC: MRI 06:46
PROVIDERS: Visit Provider Nurse Practitioner Family
DX: S80.02XA Contusion of left knee, initial encounter (principal)
CPT/HCPCS: 73721

== ENCOUNTER 2023-09-02 13:16 | Outpatient (RCR) | payer OTHER, SELFPAY | END 2023-09-10 16:04 | disposition home or self-care (01) | LOC: PT 13:16 | PROVIDERS: Visit Provider Nurse Practitioner Family | DX: S80.02XD Contusion of left knee, subsequent encounter (principal) | CPT/HCPCS: 97110; 97112; 97162 ==